=== PATIENT | female | born 1950 | race Caucasian/White ===

== ENCOUNTER 2021-07-12 09:36 | Observation (INO) | payer MEDICARE ==
[2021-07-12] MEDS ORDERED: Sodium Chloride 0.9% 500 ML 500 ML IV ONE ×4 (10:16→14:47)
[2021-07-12] MEDS ORDERED: Zofran 4 MG/2 ML VIAL IV ONE ×2 (10:17→13:24)
--- NOTE | 2021-07-12 10:22 | ERPHSYRPT ---
- History of Present Illness Time Seen by Provider: 07/12/21 10:07 Source: patient, family Exam Limitations: no limitations Patient Subjective Stated Complaint: Pt states "My kids think I am having an anxiety attach, I recently lost my and brother. I am nauseated and I get dizzy and I just do not feel well. I have a cough as well." Triage Nursing Assessment: Pt presented alert and oriented X 3, skin pwd Pt ambulates with a slow gait, able to speak in clear full sentences pt has depressed appearance, slow movements. Physician History: 71-year-old female with history of hypertension, hyperlipidemia, coronary artery disease status post stenting presented to the ER with chief complaint of dizziness, nausea/dry heaving with cough minimal productive of clear to yellow sputum for the last couple of days. Patient reports she felt dizzy and lightheaded with lying down and activity, feels spinning sensation with associated nausea and no vomiting. No abdominal pain or diarrhea reported. Also have minimal productive cough and he gets short of breath at times but no chest pain. No fever or chills reported. Feels weak fatigued and tired with some off balance at times. No focal numbness tingling or weakness. No difficulty speech or visual symptoms. Does have history of anxiety and lately having worsening of symptoms because of loss of and brother in the month time. Timing/Duration: day(s) (2), gradual onset, worse Severity: moderate Modifying Factors: Worsens With: movement Associated Symptoms: nausea, shortness of breath, cough, malaise, weakness, No abdominal pain, No chest pain Allergies/Adverse Reactions: No Known Drug Allergies Allergy (Verified 07/12/21 09:52) Home Medications: Aspirin EC 325 mg [Ecotrin 325 MG] 325 mg PO DAILY 07/12/21 [History] lisinopriL [Lisinopril] 5 mg PO DAILY 07/12/21 [History] Hx Tetanus, Diphtheria Vaccination/Date Given: No Hx Influenza Vaccination/Date Given: Yes Hx Pneumococcal Vaccination/Date Given: No Immunizations Up to Date: Yes Travel Risk - International Travel Have you traveled outside of the country in past 3 weeks: No - Coronavirus Screening Are you exhibiting any of the following symptoms?: No Close contact with a COVID-19 positive Pt in past 14-21 Days: No - Vaccine Status Have you recieved a Covid-19 vaccination: Yes It Technician: Moderna - Vaccination Dates Date of 2cond Vaccination (if applicable): 07/2020 - Review of Systems Constitutional: Fatigue, Weakness Eyes: No Symptoms Ears, Nose, & Throat: No Symptoms Respiratory: Cough, Dyspnea Cardiac: No Symptoms Abdominal/Gastrointestinal: Nausea Genitourinary Symptoms: No Symptoms Musculoskeletal: Myalgias Skin: No Symptoms Neurological: Dizziness, Gait Changes Psychological: Anxiety Endocrine: No Symptoms Hematologic/Lymphatic: No Symptoms Immunological/Allergic: No Symptoms - Past Medical History Pertinent Past Medical History: Yes Neurological History: No Pertinent History Cardiac History: Coronary Artery Disease, High Cholesterol, Hypertension Respiratory History: No Pertinent History Endocrine Medical History: No Pertinent History Musculoskeletal History: Fractures Other Medical History: FX RIGHT ANKLE - BOOTED X 8 WEEKS. ONE STENT PLACED IN HEART 2005. HYSTERECTOMY 22 YEARS AGO. - Past Surgical History Past Surgical History: Yes Other Surgical History: d & C. complete hysterectomy. appi - Social History Smoking Status: Never smoker Exposure to second hand smoke: Yes Drug Use: none Patient Lives Alone: Yes - Nursing Vital Signs Nursing Vital Signs: Initial Vital Signs Temperature 97.7 F 07/12/21 09:44 Pulse Rate 118 H 07/12/21 09:44 Respiratory Rate 26 H 07/12/21 09:44 Blood Pressure 187/98 07/12/21 09:44 O2 Sat by Pulse Oximetry 96 07/12/21 09:44 Pain Scale Pain Intensity 0 - Physical Exam General Appearance: no apparent distress, alert, anxiety Eye Exam: PERRL/EOMI, eyes nml inspection Ears, Nose, Throat Exam: normal ENT inspection, TMs normal, pharynx normal, moist mucous membranes Neck Exam: normal inspection, non-tender, supple, full range of motion Respiratory Exam: normal breath sounds, lungs clear Cardiovascular Exam: normal heart sounds, tachycardia Back Exam: normal inspection, normal range of motion Extremity Exam: normal inspection, normal range of motion Neurologic Exam: alert, oriented x 3, cooperative, 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, nml cerebellar function, sensation nml, No normal mood/affect, No motor deficits Skin Exam: normal color SpO2 Interpretation: normal SpO2: 96 O2 Delivery: Room Air - Course EKG Interpreted by Me: RATE (112), Sinus Tach, NORMAL AXIS, NORMAL INTERVALS, NORMAL QRS, Other (Nonspecific T wave changes) Ordered Tests: Active Orders 24 hr Category Date Time Status EKG-ER Only STAT Care 07/12/21 10:15 Active IV Insertion STAT Care 07/12/21 10:15 Active NPO (ED) STAT Care 07/12/21 10:15 Active CHEST 1 VIEW (PORTABLE) Stat Exams 07/12/21 10:15 Completed CHEST WITH CONTRAST [CT] Stat Exams 07/12/21 11:40 Taken HEAD WITHOUT CONTRAST [CT] Stat Exams 07/12/21 10:17 Taken CBC W DIFF Stat Lab 07/12/21 10:10 Completed CMP Stat Lab 07/12/21 10:10 Completed LIPASE Stat Lab 07/12/21 10:10 Completed Lactic Acid Stat Lab 07/12/21 10:15 Completed Lactic Acid Stat Lab 07/12/21 13:15 Completed MAGNESIUM Stat Lab 07/12/21 10:10 Completed NT PRO BNP Routine Lab 07/12/21 13:16 Completed NT PRO BNP Stat Lab 07/12/21 10:10 Completed TROPONIN Q3H Lab 07/12/21 10:15 Completed TROPONIN Q3H Lab 07/12/21 13:16 Completed TROPONIN Q3H Lab 07/12/21 16:15 Ordered TROPONIN Q3H Lab 07/12/21 19:15 Ordered TROPONIN Q3H Lab 07/12/21 22:15 Ordered Transfer Order Routine Transfer 07/12/21 Ordered Medication Summary Generic Name Dose Route Start Last Admin Trade Name Freq PRN Reason Stop Dose Admin Sodium Chloride 500 mls @ 500 mls/hr 07/12/21 14:34 07/12/21 14:48 Sodium Chloride 0.9% 500 Ml IV 07/12/21 15:33 500 mls/hr .Q1H ONE Administration Discontinued Medications Generic Name Dose Route Start Last Admin Trade Name Freq PRN Reason Stop Dose Admin Acetaminophen 975 mg 07/12/21 13:24 07/12/21 13:33 Acetaminophen 325 Mg Tablet PO 07/12/21 13:25 975 mg STAT STA Administration Acetaminophen Confirm 07/12/21 13:32 Acetaminophen 325 Mg Tablet Administered 07/12/21 13:33 Dose 975 mg .ROUTE .STK-MED ONE Sodium Chloride 500 mls @ 500 mls/hr 07/12/21 10:16 07/12/21 11:39 Sodium Chloride 0.9% 500 Ml IV 07/12/21 11:15 Infused .Q1H ONE Infusion Sodium Chloride Confirm 07/12/21 10:32 Sodium Chloride 0.9% 500 Ml Administered 07/12/21 10:33 Dose 500 mls @ ud IV .STK-MED ONE Sodium Chloride Confirm 07/12/21 14:47 Sodium Chloride 0.9% 500 Ml Administered 07/12/21 14:48 Dose 500 mls @ ud IV .STK-MED ONE Meclizine HCl 25 mg 07/12/21 14:34 07/12/21 14:48 Meclizine Hcl 25 Mg Tablet PO 07/12/21 14:35 25 mg STAT ONE Administration Meclizine HCl Confirm 07/12/21 14:46 Meclizine Hcl 25 Mg Tablet Administered 07/12/21 14:47 Dose 25 mg .ROUTE .STK-MED ONE Ondansetron HCl 4 mg 07/12/21 10:17 07/12/21 10:38 Ondansetron Hcl 4 Mg/2 Ml Vial IV 07/12/21 10:18 4 mg STAT ONE Administration Ondansetron HCl Confirm 07/12/21 10:31 Ondansetron Hcl 4 Mg/2 Ml Vial Administered 07/12/21 10:32 Dose 4 mg .ROUTE .STK-MED ONE Ondansetron HCl 4 mg 07/12/21 13:24 07/12/21 13:33 Ondansetron Hcl 4 Mg/2 Ml Vial IV 07/12/21 13:25 4 mg STAT ONE Administration Ondansetron HCl Confirm 07/12/21 13:32 Ondansetron Hcl 4 Mg/2 Ml Vial Administered 07/12/21 13:33 Dose 4 mg .ROUTE .STK-MED ONE Lab/Rad Data: Laboratory Result Diagrams 07/12/21 10:10 07/12/21 10:10 Laboratory Results 07/12/21 07/12/21 07/12/21 Range/Units 13:16 13:15 10:15 WBC (4.0-10.5) K/mm3 RBC (4.1-5.4) M/mm3 Hgb (12.0-16.0) gm/dl Hct (35-47) % MCV (78-100) fl MCH (26-32) pg MCHC (32-36) g/dl RDW (11.5-14.0) % Plt Count (150-450) K/mm3 MPV (7.5-11.0) fl Gran % (36.0-66.0) % Eos # (Auto) (0-0.5) Absolute Lymphs (auto) (1.0-4.6) Absolute Monos (auto) (0.0-1.3) Lymphocytes % (24.0-44.0) % Monocytes % (0.0-12.0) % Eosinophils % (0.00-5.0) % Basophils % (0.0-0.4) % Absolute Granulocytes (1.4-6.9) Basophils # (0-0.4) Sodium (137-145) mmol/L Potassium (3.5-5.1) mmol/L Chloride (98-107) mmol/L Carbon Dioxide (22-30) mmol/L Anion Gap (5-15) MEQ/L BUN (7-17) mg/dL Creatinine (0.52-1.04) mg/dL Estimated GFR ML/MIN Glucose (74-106) mg/dL Lactic Acid 2.5 H 2.3 H (0.4-2.0) Calcium (8.4-10.2) mg/dL Magnesium (1.6-2.3) mg/dL Total Bilirubin (0.2-1.3) mg/dL AST (14-36) U/L ALT (0-35) U/L Alkaline Phosphatase (38-126) U/L Troponin I < 0.012 (0.000-0.034) ng/mL NT-Pro-B Natriuret Pep 231 (0-900) pg/mL Serum Total Protein (6.3-8.2) g/dL Albumin (3.5-5.0) g/dL Lipase (23-300) U/L Urinalys Dipstick Clnc Urine Color (YELLOW) Urine Appearance (CLEAR) Urine pH (5-6) Ur Specific Ferguson (1.005-1.025) POC Urine Protein Conf (Negative) Urine Ketones (NEGATIVE) Urine Nitrite (NEGATIVE) Urine Bilirubin (NEGATIVE) Urine Urobilinogen (0-1) mg/dL Urine Leukocytes (NEGATIVE) Urine WBC (Auto) (0-5) /HPF Urine RBC (Auto) (0-2) /HPF U Epithel Cells (Auto) (FEW) /HPF Urine Bacteria (Auto) (NEGATIVE) /HPF Urine RBC (0-5) Jimbo/ul Urine Mucus (Auto) (NEGATIVE) /HPF Ur Culture Indicated? Urine Glucose (NEGATIVE) mg/dL 07/12/21 07/12/21 07/12/21 Range/Units 10:15 10:10 10:10 WBC 13.4 H (4.0-10.5) K/mm3 RBC 4.93 (4.1-5.4) M/mm3 Hgb 16.0 (12.0-16.0) gm/dl Hct 47.0 (35-47) % MCV 95.3 (78-100) fl MCH 32.5 H (26-32) pg MCHC 34.0 (32-36) g/dl RDW 13.1 (11.5-14.0) % Plt Count 258 (150-450) K/mm3 MPV 11.1 H (7.5-11.0) fl Gran % 88.4 H (36.0-66.0) % Eos # (Auto) 0.05 (0-0.5) Absolute Lymphs (auto) 0.76 L (1.0-4.6) Absolute Monos (auto) 0.69 (0.0-1.3) Lymphocytes % 5.7 L (24.0-44.0) % Monocytes % 5.2 (0.0-12.0) % Eosinophils % 0.4 (0.00-5.0) % Basophils % 0.3 (0.0-0.4) % Absolute Granulocytes 11.81 H (1.4-6.9) Basophils # 0.04 (0-0.4) Sodium 137 (137-145) mmol/L Potassium 4.4 (3.5-5.1) mmol/L Chloride 101 (98-107) mmol/L Carbon Dioxide 25 (22-30) mmol/L Anion Gap 15.4 H (5-15) MEQ/L BUN 14 (7-17) mg/dL Creatinine 0.62 (0.52-1.04) mg/dL Estimated GFR > 60.0 ML/MIN Glucose 145 H (74-106) mg/dL Lactic Acid (0.4-2.0) Calcium 9.7 (8.4-10.2) mg/dL Magnesium 1.7 (1.6-2.3) mg/dL Total Bilirubin 0.80 (0.2-1.3) mg/dL AST 23 (14-36) U/L ALT 17 (0-35) U/L Alkaline Phosphatase 108 (38-126) U/L Troponin I < 0.012 (0.000-0.034) ng/mL NT-Pro-B Natriuret Pep 190 (0-900) pg/mL Serum Total Protein 7.3 (6.3-8.2) g/dL Albumin 4.3 (3.5-5.0) g/dL Lipase 60 (23-300) U/L Urinalys Dipstick Clnc Urine Color (YELLOW) Urine Appearance (CLEAR) Urine pH (5-6) Ur Specific Ferguson (1.005-1.025) POC Urine Protein Conf (Negative) Urine Ketones (NEGATIVE) Urine Nitrite (NEGATIVE) Urine Bilirubin (NEGATIVE) Urine Urobilinogen (0-1) mg/dL Urine Leukocytes (NEGATIVE) Urine WBC (Auto) (0-5) /HPF Urine RBC (Auto) (0-2) /HPF U Epithel Cells (Auto) (FEW) /HPF Urine Bacteria (Auto) (NEGATIVE) /HPF Urine RBC (0-5) Jimbo/ul Urine Mucus (Auto) (NEGATIVE) /HPF Ur Culture Indicated? Urine Glucose (NEGATIVE) mg/dL 07/12/21 Range/Units 10:07 WBC (4.0-10.5) K/mm3 RBC (4.1-5.4) M/mm3 Hgb (12.0-16.0) gm/dl Hct (35-47) % MCV (78-100) fl MCH (26-32) pg MCHC (32-36) g/dl RDW (11.5-14.0) % Plt Count (150-450) K/mm3 MPV (7.5-11.0) fl Gran % (36.0-66.0) % Eos # (Auto) (0-0.5) Absolute Lymphs (auto) (1.0-4.6) Absolute Monos (auto) (0.0-1.3) Lymphocytes % (24.0-44.0) % Monocytes % (0.0-12.0) % Eosinophils % (0.00-5.0) % Basophils % (0.0-0.4) % Absolute Granulocytes (1.4-6.9) Basophils # (0-0.4) Sodium (137-145) mmol/L Potassium (3.5-5.1) mmol/L Chloride (98-107) mmol/L Carbon Dioxide (22-30) mmol/L Anion Gap (5-15) MEQ/L BUN (7-17) mg/dL Creatinine (0.52-1.04) mg/dL Estimated GFR ML/MIN Glucose (74-106) mg/dL Lactic Acid (0.4-2.0) Calcium (8.4-10.2) mg/dL Magnesium (1.6-2.3) mg/dL Total Bilirubin (0.2-1.3) mg/dL AST (14-36) U/L ALT (0-35) U/L Alkaline Phosphatase (38-126) U/L Troponin I (0.000-0.034) ng/mL NT-Pro-B Natriuret Pep (0-900) pg/mL Serum Total Protein (6.3-8.2) g/dL Albumin (3.5-5.0) g/dL Lipase (23-300) U/L Urinalys Dipstick Clnc MAIN LAB Urine Color YELLOW (YELLOW) Urine Appearance CLEAR (CLEAR) Urine pH 8.5 (5-6) Ur Specific Ferguson 1.015 (1.005-1.025) POC Urine Protein Conf NEGATIVE (Negative) Urine Ketones NEGATIVE (NEGATIVE) Urine Nitrite NEGATIVE (NEGATIVE) Urine Bilirubin NEGATIVE (NEGATIVE) Urine Urobilinogen 1 (0-1) mg/dL Urine Leukocytes NEGATIVE (NEGATIVE) Urine WBC (Auto) NONE (0-5) /HPF Urine RBC (Auto) 3-5 (0-2) /HPF U Epithel Cells (Auto) RARE (FEW) /HPF Urine Bacteria (Auto) RARE (NEGATIVE) /HPF Urine RBC TRACE-INTACT (0-5) Jimbo/ul Urine Mucus (Auto) SLIGHT (NEGATIVE) /HPF Ur Culture Indicated? NO Urine Glucose NEGATIVE (NEGATIVE) mg/dL - Progress Progress: improved, re-examined Progress Note: 07/12/21 15:02 71-year-old is evaluated for dizziness, nausea, was tachycardic on presentation with heart rate in 110s, given fluid bolus, meclizine along with Zofran, on reevaluation feeling better. EKG showed sinus tach without any acute ST elevations. Negative troponins x2. The white count of 13 with a lactate of 2.3. CT head is negative for any acute findings. Patient has no focal deficit. Patient does get dizzy with sitting up and was difficult to do orthostatics. Obtained CTA chest as well which is negative for any acute findings. With her symptoms of getting off balance, dizzy, concern for posterior fossa stroke. This has been going on for the last 4 to 5 days per patient and she is not a candidate for any emergent treatment, discussed with Dr. Damon, patient is admitted and will plan on doing MRI tomorrow. Plan discussed with patient and family who understand and agree with it. Discussed with : Arlet Will see patient in: hospital (observation) Counseled pt/family regarding: lab results, diagnosis, rad results - Departure Departure Disposition: Observation Clinical Impression: Dizziness, Generalized weakness Condition: Stable Critical Care Time: No Referrals: FAVIO HUTSON, [Primary Care Provider] - Follow up/PCP as directed
[2021-07-12 10:23] LABS: Absolute Neutrophil Ct (ANC) 11.81 (1.4-6.9); Basophil (Absolute #) 0.04 (0-0.4); Eosinophil % 0.4 % (0.00-5.0); Eosinophil (Absolute #) 0.05 (0-0.5); Lymphocyte (Absolute #) 0.76 (1.0-4.6); Lymphocytes % 5.7 % (24.0-44.0); Mean Cell Volume 95.3 fl (78-100); Mean Corpuscular Hemoglobin 32.5 pg (26-32); Mean Platelet Volume 11.1 fl (7.5-11.0); Monocyte (Absolute #) 0.69 (0.0-1.3); Monocytes % 5.2 % (0.0-12.0); Neutrophil % 88.4 % (36.0-66.0); Platelet Count 258 K/mm3 (150-450); Red Blood Count 4.93 M/mm3 (4.1-5.4); Red Cell Distribution Width 13.1 % (11.5-14.0); White Blood Count 13.4 K/mm3 (4.0-10.5)
[2021-07-12] MEDS ORDERED: Zofran 4 MG/2 ML VIAL ONE ×2 (10:31→13:32)
[2021-07-12 10:37] LABS: Bacteria RARE /HPF (NEGATIVE); Epithelial Cells RARE /HPF (FEW); Mucus SLIGHT /HPF (NEGATIVE)
[2021-07-12 10:38] LABS: Appearance CLEAR (CLEAR); Bilirubin NEGATIVE (NEGATIVE); Glucose NEGATIVE (NEGATIVE); Ketones NEGATIVE (NEGATIVE); Nitrite NEGATIVE (NEGATIVE); Ph 8.5 (5-6); Protein,Urine Dip NEGATIVE (Negative); RBC TRACE-INTACT Ery/ul (0-5); Specific Gravity 1.015 (1.005-1.025); Urobilinogen 1 mg/dL (0-1)
[2021-07-12 10:39] LABS: Urine Cultured Indicated? NO
[2021-07-12 10:41] LABS: Dipstick done @ ? MAIN LAB
[2021-07-12 10:50] LABS: ALBUMIN 4.3 g/dL (3.5-5.0); ALKALINE PHOSPHATASE 108 U/L (38-126); ANION GAP 15.4 MEQ/L (5-15); BLOOD UREA NITROGEN 14 mg/dL (7-17); CHLORIDE 101 mmol/L (98-107); Calcium 9.7 mg/dL (8.4-10.2); Carbon Dioxide 25 mmol/L (22-30); Creatinine 1 0.62 mg/dL (0.52-1.04); EST GLOMERULAR FILTRATION RATE > 60.0 ML/MIN; Glucose 145 mg/dL (74-106); LIPASE 60 U/L (23-300); MAGNESIUM 1.7 mg/dL (1.6-2.3); NT PRO BNP 190 pg/mL (0-900); Potassium 4.4 mmol/L (3.5-5.1); SGOT/AST 23 U/L (14-36); SGPT/ALT 17 U/L (0-35); SODIUM 137 mmol/L (137-145); Total Protein 7.3 g/dL (6.3-8.2)
--- NOTE | 2021-07-12 12:49 | XRAY ---
Indication: Dizziness, weakness, and dry heaving. Comparison: None Portable apical lordotic chest demonstrates minimal right midlung fibrosis/scarring. Remaining heart and lungs unremarkable. Bony thorax intact with mild osteopenia and degenerative changes.
[2021-07-12] MEDS ORDERED: TYLENOL 325 MG PO STA (13:24)
[2021-07-12] MEDS ORDERED: TYLENOL 325 MG ONE (13:32)
[2021-07-12 14:02] LABS: NT PRO BNP 231 pg/mL (0-900); TROPONIN < 0.012 ng/mL (0.000-0.034)
[2021-07-12] MEDS ORDERED: ANTIVERT 25 MG ONE (14:46)
[2021-07-12] MEDS: ANTIVERT 25 MG PO ONE (14:48)
[2021-07-12 16:09] LABS: INFLUENZA A NEGATIVE (NEGATIVE); INFLUENZA B NEGATIVE (NEGATIVE); RESPIRATORY SYNCTIAL VIRUS NEGATIVE (Negative); SARS-CoV-2 Xpert Express NEGATIVE (NEGATIVE)
[2021-07-12] MEDS ORDERED: Zofran 4 MG/2 ML VIAL IV PRN (16:51)
[2021-07-12] MEDS ORDERED: DUONEB 0.5-3 MG/3 ml Neb IH PRN (16:51)
[2021-07-12] MEDS ORDERED: TYLENOL 325 MG PO PRN (16:51)
[2021-07-12] MEDS ORDERED: Robitussin 100 MG/5 ML ONE (20:59)
[2021-07-12] MEDS: Robitussin-Dm Syrup PO SCH (21:07)
--- NOTE | 2021-07-12 22:19 | XRAY ---
Indication: Dizziness, weakness, and dry heaving. Multiple contiguous axial images obtained through the head without contrast. Comparison: None Age-appropriate global atrophy. No acute intracranial hemorrhage, abnormal extra-axial fluid collection, or mass effect. Fourth ventricle is midline without hydrocephalus. Incidental empty sella. [place]-white matter differentiation preserved. Bony calvarium intact. Near-complete opacification of the left maxillary sinus. Remaining paranasal sinuses and mastoid air cells are clear. Impression: Left maxillary sinus disease. Remaining CT head without contrast exam is negative. Comment: Preliminary interpretation made by [facility]. No critical discrepancy.
--- NOTE | 2021-07-12 22:21 | XRAY ---
Indication: Short of breath and dizziness. Pulmonary embolus. Multiple contiguous axial images obtained through the chest using 100 cc Isovue 370 contrast and PE protocol. Comparison: None There is good opacification of the pulmonary arteries to include the lobar and segmental branches. No pulmonary embolus. Heart not enlarged. Aorta is normal in course and caliber. No pathologic mediastinal/hilar lymphadenopathy. Small hiatal hernia. Lungs demonstrates minimal bilateral mid to lower lung subsegmental atelectasis/scarring. No suspicious pulmonary mass, infiltrate, or effusion. Bony thorax intact with mild degenerative changes throughout the spine. Limited upper abdomen demonstrates fatty liver and 2 left renal calculi, largest 1.2 cm in the upper calyx. Impression: 1. Negative pulmonary embolus. 2. Scattered atelectasis/scarring and small hiatal hernia. 3. No acute cardiopulmonary abnormalities. 3. Incidental fatty liver and left renal calculi. Comment: Preliminary interpretation made by [facility]. No critical discrepancy.
[2021-07-13] MEDS: Robitussin-Dm Syrup PO SCH ×3 (00:19→08:21)
[2021-07-13 05:08] LABS: Absolute Neutrophil Ct (ANC) 4.74 (1.4-6.9); Basophil (Absolute #) 0.04 (0-0.4); Eosinophil % 2.6 % (0.00-5.0); Eosinophil (Absolute #) 0.17 (0-0.5); Hematocrit 38.4 % (35-47); Hemoglobin 12.9 gm/dl (12.0-16.0); Lymphocyte (Absolute #) 0.66 (1.0-4.6); Lymphocytes % 10.2 % (24.0-44.0); Mean Cell Volume 96.5 fl (78-100); Mean Corpuscular Hemoglobin 32.4 pg (26-32); Mean Corpuscular Hgb Concent. 33.6 g/dl (32-36); Mean Platelet Volume 11.1 fl (7.5-11.0); Monocyte (Absolute #) 0.86 (0.0-1.3); Monocytes % 13.3 % (0.0-12.0); Neutrophil % 73.3 % (36.0-66.0); Platelet Count 211 K/mm3 (150-450); Red Blood Count 3.98 M/mm3 (4.1-5.4); Red Cell Distribution Width 13.2 % (11.5-14.0); White Blood Count 6.5 K/mm3 (4.0-10.5)
[2021-07-13 05:12] LABS: ALBUMIN 3.5 g/dL (3.5-5.0); ALKALINE PHOSPHATASE 67 U/L (38-126); ANION GAP 12.2 MEQ/L (5-15); BLOOD UREA NITROGEN 14 mg/dL (7-17); CHLORIDE 102 mmol/L (98-107); Calcium 8.7 mg/dL (8.4-10.2); Carbon Dioxide 24 mmol/L (22-30); Creatinine 1 0.65 mg/dL (0.52-1.04); EST GLOMERULAR FILTRATION RATE > 60.0 ML/MIN; Glucose 119 mg/dL (74-106); Potassium 3.7 mmol/L (3.5-5.1); SGOT/AST 21 U/L (14-36); SGPT/ALT 14 U/L (0-35); SODIUM 135 mmol/L (137-145); Total Protein 6.3 g/dL (6.3-8.2)
[2021-07-13 08:15] VITALS: BP 115/58; PULSE 92; O2SAT 92
[2021-07-13] MEDS ORDERED: NON-FORMULARY ITEM (Vit A/Vit C/Vit E/Zinc/Copper [Preservision Areds Softgel] 1 EACH Caps PO SCH (10:00)
[2021-07-13] MEDS ORDERED: ANTIVERT 25 MG PO ONE (10:00)
[2021-07-13] MEDS ORDERED: Zestril 5 MG PO SCH (10:00)
[2021-07-13] MEDS ORDERED: Ocuvite Tablet PO SCH (10:00)
[2021-07-13] MEDS ORDERED: NON-FORMULARY ITEM (Calcium Carbonate [Calcium] 500 MG Tablet) PO SCH (10:00)
[2021-07-13] MEDS ORDERED: Ecotrin 325 MG PO SCH (10:00)
[2021-07-13] MEDS ORDERED: Calcium 500MG W/Vit D Tablet PO SCH (10:00)
[2021-07-13] MEDS ORDERED: PROTONIX 40 MG IV IV SCH (10:00)
[2021-07-13] MEDS: ANTIVERT 25 MG PO ONE (10:17)
--- NOTE | 2021-07-13 10:34 | PCM.SSS ---
History of Present Illness - Chief Complaint Chief Complaint: Dizziness History of Present Illness: is a 71 year old female with Hx CAD with stent 2006,HTN,GERD.Patient presented to ER c/o dizziness "feel like I am Spinning",episodic. C/O "chest cold "and sinus drainage past few days. Stress due to about 5 months ago. - Review of Systems Constitutional: Fatigue Eyes: No Symptoms Ears, Nose, & Throat: Sinus Drainage, Other (dizziness-see HPI) Respiratory: Cough, Short Of Breath Cardiac: No Symptoms, Other Abdominal/Gastrointestinal: No Symptoms, Other (GERD controlled on meds) Genitourinary Symptoms: No Symptoms Musculoskeletal: Other (no acute symptoms) Skin: No Symptoms Neurological: Dizziness, Other (no focal weaknees or headache) Psychological: Anxiety (grief due to passing ) Endocrine: No Symptoms Immunological/Allergic: Other Medications & Allergies Home Medications: Home Medication List Aspirin EC 325 mg [Ecotrin 325 MG] 325 mg PO DAILY 07/12/21 [History Confirmed 07/12/21] Calcium Carbonate [Calcium] 500 mg PO DAILY 07/12/21 [History Confirmed 07/12/21] Vit A/Vit C/Vit E/Zinc/Copper [Preservision Areds Softgel] 2 cap PO DAILY 07/12/21 [History Confirmed 07/12/21] lisinopriL [Lisinopril] 5 mg PO DAILY 07/12/21 [History Confirmed 07/12/21] Azithromycin [Azithromycin 250 mg Pack] 250 mg PO UD #1 packet 07/13/21 [Rx] Lisinopril 5 mg [Zestril 5 MG] 5 mg PO DAILY 30 Days #30 tablet 07/13/21 [Rx] Allergies/Adverse Reactions: Allergies Allergy/AdvReac Type Severity Reaction Status Date / Time No Known Drug Allergies Allergy Verified 07/12/21 09:52 - Past Medical History Past Medical History: Yes Neurological History: No Pertinent History ENT History: No Pertinent History Cardiac History: Coronary Artery Disease, High Cholesterol, Hypertension Respiratory History: No Pertinent History Endocrine Medical History: No Pertinent History Musculoskelatal History: Fractures GI Medical History: No Pertinent History History: No Pertinent History Pyscho-Social History: No Pertinent History Reproductive Disorders: No Pertinent History Comment: FX RIGHT ANKLE - BOOTED X 8 WEEKS. ONE STENT PLACED IN HEART 2005. HYSTERECTOMY 22 YEARS AGO. - Female History Are you now?: No - Past Surgical History Past Surgical History: Yes Neuro Surgical History: No Pertinent History Cardiac History: Cardiac Stent Respiratory Surgery: No Pertinent History Genitourinary Surgical Hx: No Pertinent History Musculskeletal Surgical Hx: No Pertinent History Female Surgical History: Hysterectomy Other Surgical History: d & C. complete hysterectomy. appi - Social History Smoking Status: Never smoker Exposure to second hand smoke: Yes Alcohol: None Drug Use: none - Physical Exam Vital Signs: Vital Signs - 24 hr Temp Pulse Resp BP Pulse Ox 07/13/21 08:14 92 L 07/13/21 08:00 98.6 F 92 H 20 115/58 93 L 07/13/21 03:39 98.3 F 110 H 20 139/88 94 L 07/12/21 23:53 98.6 F 92 H 16 106/55 95 07/12/21 19:55 98.6 F 109 H 16 115/55 93 L 07/12/21 19:29 93 L 07/12/21 17:18 92 L 07/12/21 17:11 97.8 F 100 H 20 109/71 92 L 07/12/21 16:30 97.8 F 100 H 20 109/71 98 07/12/21 15:26 105 H 20 144/80 93 L 07/12/21 15:09 96 07/12/21 14:17 97.7 F 111 H 20 154/84 92 L 07/12/21 13:26 97.7 F 109 H 20 173/87 98 07/12/21 12:14 97.7 F 115 H 20 140/95 92 L 07/12/21 11:34 112 H 22 140/94 93 L 07/12/21 10:42 97.7 F 104 H 20 152/98 98 General Appearance: no apparent distress Neurologic Exam: alert, oriented x 3, cooperative, 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, normal mood/affect Eye Exam: eyes nml inspection Ears, Nose, Throat Exam: TM abnormal (R) (opacified) Neck Exam: normal inspection Respiratory Exam: normal breath sounds Cardiovascular Exam: regular rate/rhythm, normal heart sounds Gastrointestinal/Abdomen Exam: soft, normal bowel sounds (nontender) Pelvic Exam: not done Rectal Exam: not done Back Exam: other (muscle tension paracervical and trap mm) Extremity Exam: normal inspection Results - Labs Lab/Micro Results: Lab Results-Last 24 Hours 07/12/21 07/12/21 07/12/21 Range/Units 10:07 10:10 10:15 WBC (4.0-10.5) K/mm3 RBC (4.1-5.4) M/mm3 Hgb (12.0-16.0) gm/dl Hct (35-47) % MCV (78-100) fl MCH (26-32) pg MCHC (32-36) g/dl RDW (11.5-14.0) % Plt Count (150-450) K/mm3 MPV (7.5-11.0) fl Gran % (36.0-66.0) % Eos # (Auto) (0-0.5) Absolute Lymphs (auto) (1.0-4.6) Absolute Monos (auto) (0.0-1.3) Lymphocytes % (24.0-44.0) % Monocytes % (0.0-12.0) % Eosinophils % (0.00-5.0) % Basophils % (0.0-0.4) % Absolute Granulocytes (1.4-6.9) Basophils # (0-0.4) Sodium 137 (137-145) mmol/L Potassium 4.4 (3.5-5.1) mmol/L Chloride 101 (98-107) mmol/L Carbon Dioxide 25 (22-30) mmol/L Anion Gap 15.4 H (5-15) MEQ/L BUN 14 (7-17) mg/dL Creatinine 0.62 (0.52-1.04) mg/dL Estimated GFR > 60.0 ML/MIN Glucose 145 H (74-106) mg/dL Lactic Acid (0.4-2.0) Calcium 9.7 (8.4-10.2) mg/dL Magnesium 1.7 (1.6-2.3) mg/dL Total Bilirubin 0.80 (0.2-1.3) mg/dL AST 23 (14-36) U/L ALT 17 (0-35) U/L Alkaline Phosphatase 108 (38-126) U/L Troponin I < 0.012 (0.000-0.034) ng/mL NT-Pro-B Natriuret Pep 190 (0-900) pg/mL Serum Total Protein 7.3 (6.3-8.2) g/dL Albumin 4.3 (3.5-5.0) g/dL Lipase 60 (23-300) U/L Urinalys Dipstick Clnc MAIN LAB Urine Color YELLOW (YELLOW) Urine Appearance CLEAR (CLEAR) Urine pH 8.5 (5-6) Ur Specific [place] 1.015 (1.005-1.025) POC Urine Protein Conf NEGATIVE (Negative) Urine Ketones NEGATIVE (NEGATIVE) Urine Nitrite NEGATIVE (NEGATIVE) Urine Bilirubin NEGATIVE (NEGATIVE) Urine Urobilinogen 1 (0-1) mg/dL Urine Leukocytes NEGATIVE (NEGATIVE) Urine WBC (Auto) NONE (0-5) /HPF Urine RBC (Auto) 3-5 (0-2) /HPF U Epithel Cells (Auto) RARE (FEW) /HPF Urine Bacteria (Auto) RARE (NEGATIVE) /HPF Urine RBC TRACE-INTACT (0-5) Jimbo/ul Urine Mucus (Auto) SLIGHT (NEGATIVE) /HPF Ur Culture Indicated? NO Urine Glucose NEGATIVE (NEGATIVE) mg/dL Influenza Type A Ag (NEGATIVE) Influenza Type B Ag (NEGATIVE) RSV (PCR) (Negative) SARS-CoV-2 (PCR) (NEGATIVE) 07/12/21 07/12/21 07/12/21 Range/Units 10:15 13:15 13:16 WBC (4.0-10.5) K/mm3 RBC (4.1-5.4) M/mm3 Hgb (12.0-16.0) gm/dl Hct (35-47) % MCV (78-100) fl MCH (26-32) pg MCHC (32-36) g/dl RDW (11.5-14.0) % Plt Count (150-450) K/mm3 MPV (7.5-11.0) fl Gran % (36.0-66.0) % Eos # (Auto) (0-0.5) Absolute Lymphs (auto) (1.0-4.6) Absolute Monos (auto) (0.0-1.3) Lymphocytes % (24.0-44.0) % Monocytes % (0.0-12.0) % Eosinophils % (0.00-5.0) % Basophils % (0.0-0.4) % Absolute Granulocytes (1.4-6.9) Basophils # (0-0.4) Sodium (137-145) mmol/L Potassium (3.5-5.1) mmol/L Chloride (98-107) mmol/L Carbon Dioxide (22-30) mmol/L Anion Gap (5-15) MEQ/L BUN (7-17) mg/dL Creatinine (0.52-1.04) mg/dL Estimated GFR ML/MIN Glucose (74-106) mg/dL Lactic Acid 2.3 H 2.5 H (0.4-2.0) Calcium (8.4-10.2) mg/dL Magnesium (1.6-2.3) mg/dL Total Bilirubin (0.2-1.3) mg/dL AST (14-36) U/L ALT (0-35) U/L Alkaline Phosphatase (38-126) U/L Troponin I < 0.012 (0.000-0.034) ng/mL NT-Pro-B Natriuret Pep 231 (0-900) pg/mL Serum Total Protein (6.3-8.2) g/dL Albumin (3.5-5.0) g/dL Lipase (23-300) U/L Urinalys Dipstick Clnc Urine Color (YELLOW) Urine Appearance (CLEAR) Urine pH (5-6) Ur Specific [place] (1.005-1.025) POC Urine Protein Conf (Negative) Urine Ketones (NEGATIVE) Urine Nitrite (NEGATIVE) Urine Bilirubin (NEGATIVE) Urine Urobilinogen (0-1) mg/dL Urine Leukocytes (NEGATIVE) Urine WBC (Auto) (0-5) /HPF Urine RBC (Auto) (0-2) /HPF U Epithel Cells (Auto) (FEW) /HPF Urine Bacteria (Auto) (NEGATIVE) /HPF Urine RBC (0-5) Jimbo/ul Urine Mucus (Auto) (NEGATIVE) /HPF Ur Culture Indicated? Urine Glucose (NEGATIVE) mg/dL Influenza Type A Ag (NEGATIVE) Influenza Type B Ag (NEGATIVE) RSV (PCR) (Negative) SARS-CoV-2 (PCR) (NEGATIVE) 07/12/21 07/12/21 07/12/21 Range/Units 15:09 15:45 15:50 WBC (4.0-10.5) K/mm3 RBC (4.1-5.4) M/mm3 Hgb (12.0-16.0) gm/dl Hct (35-47) % MCV (78-100) fl MCH (26-32) pg MCHC (32-36) g/dl RDW (11.5-14.0) % Plt Count (150-450) K/mm3 MPV (7.5-11.0) fl Gran % (36.0-66.0) % Eos # (Auto) (0-0.5) Absolute Lymphs (auto) (1.0-4.6) Absolute Monos (auto) (0.0-1.3) Lymphocytes % (24.0-44.0) % Monocytes % (0.0-12.0) % Eosinophils % (0.00-5.0) % Basophils % (0.0-0.4) % Absolute Granulocytes (1.4-6.9) Basophils # (0-0.4) Sodium (137-145) mmol/L Potassium (3.5-5.1) mmol/L Chloride (98-107) mmol/L Carbon Dioxide (22-30) mmol/L Anion Gap (5-15) MEQ/L BUN (7-17) mg/dL Creatinine (0.52-1.04) mg/dL Estimated GFR ML/MIN Glucose (74-106) mg/dL Lactic Acid 1.3 (0.4-2.0) Calcium (8.4-10.2) mg/dL Magnesium (1.6-2.3) mg/dL Total Bilirubin (0.2-1.3) mg/dL AST (14-36) U/L ALT (0-35) U/L Alkaline Phosphatase (38-126) U/L Troponin I < 0.012 (0.000-0.034) ng/mL NT-Pro-B Natriuret Pep (0-900) pg/mL Serum Total Protein (6.3-8.2) g/dL Albumin (3.5-5.0) g/dL Lipase (23-300) U/L Urinalys Dipstick Clnc Urine Color (YELLOW) Urine Appearance (CLEAR) Urine pH (5-6) Ur Specific [place] (1.005-1.025) POC Urine Protein Conf (Negative) Urine Ketones (NEGATIVE) Urine Nitrite (NEGATIVE) Urine Bilirubin (NEGATIVE) Urine Urobilinogen (0-1) mg/dL Urine Leukocytes (NEGATIVE) Urine WBC (Auto) (0-5) /HPF Urine RBC (Auto) (0-2) /HPF U Epithel Cells (Auto) (FEW) /HPF Urine Bacteria (Auto) (NEGATIVE) /HPF Urine RBC (0-5) Jimbo/ul Urine Mucus (Auto) (NEGATIVE) /HPF Ur Culture Indicated? Urine Glucose (NEGATIVE) mg/dL Influenza Type A Ag NEGATIVE (NEGATIVE) Influenza Type B Ag NEGATIVE (NEGATIVE) RSV (PCR) NEGATIVE (Negative) SARS-CoV-2 (PCR) NEGATIVE (NEGATIVE) 07/12/21 07/12/21 07/13/21 Range/Units 20:08 23:08 04:36 WBC 6.5 (4.0-10.5) K/mm3 RBC 3.98 L (4.1-5.4) M/mm3 Hgb 12.9 (12.0-16.0) gm/dl Hct 38.4 (35-47) % MCV 96.5 (78-100) fl MCH 32.4 H (26-32) pg MCHC 33.6 (32-36) g/dl RDW 13.2 (11.5-14.0) % Plt Count 211 (150-450) K/mm3 MPV 11.1 H (7.5-11.0) fl Gran % 73.3 H (36.0-66.0) % Eos # (Auto) 0.17 (0-0.5) Absolute Lymphs (auto) 0.66 L (1.0-4.6) Absolute Monos (auto) 0.86 (0.0-1.3) Lymphocytes % 10.2 L (24.0-44.0) % Monocytes % 13.3 H (0.0-12.0) % Eosinophils % 2.6 (0.00-5.0) % Basophils % 0.6 (0.0-0.4) % Absolute Granulocytes 4.74 (1.4-6.9) Basophils # 0.04 (0-0.4) Sodium (137-145) mmol/L Potassium (3.5-5.1) mmol/L Chloride (98-107) mmol/L Carbon Dioxide (22-30) mmol/L Anion Gap (5-15) MEQ/L BUN (7-17) mg/dL Creatinine (0.52-1.04) mg/dL Estimated GFR ML/MIN Glucose (74-106) mg/dL Lactic Acid (0.4-2.0) Calcium (8.4-10.2) mg/dL Magnesium (1.6-2.3) mg/dL Total Bilirubin (0.2-1.3) mg/dL AST (14-36) U/L ALT (0-35) U/L Alkaline Phosphatase (38-126) U/L Troponin I < 0.012 < 0.012 (0.000-0.034) ng/mL NT-Pro-B Natriuret Pep (0-900) pg/mL Serum Total Protein (6.3-8.2) g/dL Albumin (3.5-5.0) g/dL Lipase (23-300) U/L Urinalys Dipstick Clnc Urine Color (YELLOW) Urine Appearance (CLEAR) Urine pH (5-6) Ur Specific [place] (1.005-1.025) POC Urine Protein Conf (Negative) Urine Ketones (NEGATIVE) Urine Nitrite (NEGATIVE) Urine Bilirubin (NEGATIVE) Urine Urobilinogen (0-1) mg/dL Urine Leukocytes (NEGATIVE) Urine WBC (Auto) (0-5) /HPF Urine RBC (Auto) (0-2) /HPF U Epithel Cells (Auto) (FEW) /HPF Urine Bacteria (Auto) (NEGATIVE) /HPF Urine RBC (0-5) Jimbo/ul Urine Mucus (Auto) (NEGATIVE) /HPF Ur Culture Indicated? Urine Glucose (NEGATIVE) mg/dL Influenza Type A Ag (NEGATIVE) Influenza Type B Ag (NEGATIVE) RSV (PCR) (Negative) SARS-CoV-2 (PCR) (NEGATIVE) 07/13/21 Range/Units 04:36 WBC (4.0-10.5) K/mm3 RBC (4.1-5.4) M/mm3 Hgb (12.0-16.0) gm/dl Hct (35-47) % MCV (78-100) fl MCH (26-32) pg MCHC (32-36) g/dl RDW (11.5-14.0) % Plt Count (150-450) K/mm3 MPV (7.5-11.0) fl Gran % (36.0-66.0) % Eos # (Auto) (0-0.5) Absolute Lymphs (auto) (1.0-4.6) Absolute Monos (auto) (0.0-1.3) Lymphocytes % (24.0-44.0) % Monocytes % (0.0-12.0) % Eosinophils % (0.00-5.0) % Basophils % (0.0-0.4) % Absolute Granulocytes (1.4-6.9) Basophils # (0-0.4) Sodium 135 L (137-145) mmol/L Potassium 3.7 (3.5-5.1) mmol/L Chloride 102 (98-107) mmol/L Carbon Dioxide 24 (22-30) mmol/L Anion Gap 12.2 (5-15) MEQ/L BUN 14 (7-17) mg/dL Creatinine 0.65 (0.52-1.04) mg/dL Estimated GFR > 60.0 ML/MIN Glucose 119 H (74-106) mg/dL Lactic Acid (0.4-2.0) Calcium 8.7 (8.4-10.2) mg/dL Magnesium (1.6-2.3) mg/dL Total Bilirubin 0.50 (0.2-1.3) mg/dL AST 21 (14-36) U/L ALT 14 (0-35) U/L Alkaline Phosphatase 67 (38-126) U/L Troponin I (0.000-0.034) ng/mL NT-Pro-B Natriuret Pep (0-900) pg/mL Serum Total Protein 6.3 (6.3-8.2) g/dL Albumin 3.5 (3.5-5.0) g/dL Lipase (23-300) U/L Urinalys Dipstick Clnc Urine Color (YELLOW) Urine Appearance (CLEAR) Urine pH (5-6) Ur Specific [place] (1.005-1.025) POC Urine Protein Conf (Negative) Urine Ketones (NEGATIVE) Urine Nitrite (NEGATIVE) Urine Bilirubin (NEGATIVE) Urine Urobilinogen (0-1) mg/dL Urine Leukocytes (NEGATIVE) Urine WBC (Auto) (0-5) /HPF Urine RBC (Auto) (0-2) /HPF U Epithel Cells (Auto) (FEW) /HPF Urine Bacteria (Auto) (NEGATIVE) /HPF Urine RBC (0-5) Jimbo/ul Urine Mucus (Auto) (NEGATIVE) /HPF Ur Culture Indicated? Urine Glucose (NEGATIVE) mg/dL Influenza Type A Ag (NEGATIVE) Influenza Type B Ag (NEGATIVE) RSV (PCR) (Negative) SARS-CoV-2 (PCR) (NEGATIVE) - Radiology Impressions Radiology Exams & Impressions: Radiology Procedures Category Date Time Status CHEST 1 VIEW (PORTABLE) Stat Exams 07/12/21 10:15 Completed CHEST WITH CONTRAST [CT] Stat Exams 07/12/21 11:40 Completed HEAD WITHOUT CONTRAST [CT] Stat Exams 07/12/21 10:17 Completed - Other Procedures and Tests Respiratory Therapy 07/12/21 16:51 Oxygen Nasal Cannula 2 lpm Assessment/Plan (1) Vertigo Current Visit: Yes Status: Acute Assessment & Plan: improved since admission,continue Meclizine Code(s): R42 - DIZZINESS AND GIDDINESS (2) Acute serous otitis media of right ear without rupture Current Visit: Yes Status: Acute Code(s): H65.01 - ACUTE SEROUS OTITIS MEDIA, RIGHT EAR (3) URI (upper respiratory infection) Current Visit: Yes Status: Acute Assessment & Plan: Zpk Rx ,patient feels mucus settling in upper chest Code(s): J06.9 - ACUTE UPPER RESPIRATORY INFECTION, UNSPECIFIED (4) HTN (hypertension) Current Visit: Yes Status: Chronic Assessment & Plan: continue Lisinopril 5mg Code(s): I10 - ESSENTIAL (PRIMARY) HYPERTENSION (5) CAD (coronary artery disease) Current Visit: Yes Status: Chronic Assessment & Plan: Dr Virgil rodríguez,Hx Stent 2005. Code(s): I25.10 - ATHSCL HEART DISEASE OF [place] CORONARY ARTERY W/O ANG [facility] Hospital Summary - Vitals & Intake/Output Vital Signs: Vital Signs Temperature 98.6 F 07/13/21 08:00 Pulse Rate 92 H 07/13/21 08:00 Respiratory Rate 20 07/13/21 08:00 Blood Pressure 115/58 07/13/21 08:00 O2 Sat by Pulse Oximetry 92 L 07/13/21 08:14 Intake & Output: Intake & Output 04/0807/11/21 07/12/21 07/13/21 11:59 11:59 11:59 11:59 Intake Total 870 Output Total 650 Balance 220 Weight 101 kg 100.5 kg - Lab Result Diagrams: 07/13/21 04:36 07/13/21 04:36 Lab Results-Last 24 Hrs: Lab Results-Last 24 Hours 07/12/21 07/12/21 07/12/21 Range/Units 10:07 10:10 10:15 WBC (4.0-10.5) K/mm3 RBC (4.1-5.4) M/mm3 Hgb (12.0-16.0) gm/dl Hct (35-47) % MCV (78-100) fl MCH (26-32) pg MCHC (32-36) g/dl RDW (11.5-14.0) % Plt Count (150-450) K/mm3 MPV (7.5-11.0) fl Gran % (36.0-66.0) % Eos # (Auto) (0-0.5) Absolute Lymphs (auto) (1.0-4.6) Absolute Monos (auto) (0.0-1.3) Lymphocytes % (24.0-44.0) % Monocytes % (0.0-12.0) % Eosinophils % (0.00-5.0) % Basophils % (0.0-0.4) % Absolute Granulocytes (1.4-6.9) Basophils # (0-0.4) Sodium 137 (137-145) mmol/L Potassium 4.4 (3.5-5.1) mmol/L Chloride 101 (98-107) mmol/L Carbon Dioxide 25 (22-30) mmol/L Anion Gap 15.4 H (5-15) MEQ/L BUN 14 (7-17) mg/dL Creatinine 0.62 (0.52-1.04) mg/dL Estimated GFR > 60.0 ML/MIN Glucose 145 H (74-106) mg/dL Lactic Acid (0.4-2.0) Calcium 9.7 (8.4-10.2) mg/dL Magnesium 1.7 (1.6-2.3) mg/dL Total Bilirubin 0.80 (0.2-1.3) mg/dL AST 23 (14-36) U/L ALT 17 (0-35) U/L Alkaline Phosphatase 108 (38-126) U/L Troponin I < 0.012 (0.000-0.034) ng/mL NT-Pro-B Natriuret Pep 190 (0-900) pg/mL Serum Total Protein 7.3 (6.3-8.2) g/dL Albumin 4.3 (3.5-5.0) g/dL Lipase 60 (23-300) U/L Urinalys Dipstick Clnc MAIN LAB Urine Color YELLOW (YELLOW) Urine Appearance CLEAR (CLEAR) Urine pH 8.5 (5-6) Ur Specific [place] 1.015 (1.005-1.025) POC Urine Protein Conf NEGATIVE (Negative) Urine Ketones NEGATIVE (NEGATIVE) Urine Nitrite NEGATIVE (NEGATIVE) Urine Bilirubin NEGATIVE (NEGATIVE) Urine Urobilinogen 1 (0-1) mg/dL Urine Leukocytes NEGATIVE (NEGATIVE) Urine WBC (Auto) NONE (0-5) /HPF Urine RBC (Auto) 3-5 (0-2) /HPF U Epithel Cells (Auto) RARE (FEW) /HPF Urine Bacteria (Auto) RARE (NEGATIVE) /HPF Urine RBC TRACE-INTACT (0-5) Jimbo/ul Urine Mucus (Auto) SLIGHT (NEGATIVE) /HPF Ur Culture Indicated? NO Urine Glucose NEGATIVE (NEGATIVE) mg/dL Influenza Type A Ag (NEGATIVE) Influenza Type B Ag (NEGATIVE) RSV (PCR) (Negative) SARS-CoV-2 (PCR) (NEGATIVE) 07/12/21 07/12/21 07/12/21 Range/Units 10:15 13:15 13:16 WBC (4.0-10.5) K/mm3 RBC (4.1-5.4) M/mm3 Hgb (12.0-16.0) gm/dl Hct (35-47) % MCV (78-100) fl MCH (26-32) pg MCHC (32-36) g/dl RDW (11.5-14.0) % Plt Count (150-450) K/mm3 MPV (7.5-11.0) fl Gran % (36.0-66.0) % Eos # (Auto) (0-0.5) Absolute Lymphs (auto) (1.0-4.6) Absolute Monos (auto) (0.0-1.3) Lymphocytes % (24.0-44.0) % Monocytes % (0.0-12.0) % Eosinophils % (0.00-5.0) % Basophils % (0.0-0.4) % Absolute Granulocytes (1.4-6.9) Basophils # (0-0.4) Sodium (137-145) mmol/L Potassium (3.5-5.1) mmol/L Chloride (98-107) mmol/L Carbon Dioxide (22-30) mmol/L Anion Gap (5-15) MEQ/L BUN (7-17) mg/dL Creatinine (0.52-1.04) mg/dL Estimated GFR ML/MIN Glucose (74-106) mg/dL Lactic Acid 2.3 H 2.5 H (0.4-2.0) Calcium (8.4-10.2) mg/dL Magnesium (1.6-2.3) mg/dL Total Bilirubin (0.2-1.3) mg/dL AST (14-36) U/L ALT (0-35) U/L Alkaline Phosphatase (38-126) U/L Troponin I < 0.012 (0.000-0.034) ng/mL NT-Pro-B Natriuret Pep 231 (0-900) pg/mL Serum Total Protein (6.3-8.2) g/dL Albumin (3.5-5.0) g/dL Lipase (23-300) U/L Urinalys Dipstick Clnc Urine Color (YELLOW) Urine Appearance (CLEAR) Urine pH (5-6) Ur Specific [place] (1.005-1.025) POC Urine Protein Conf (Negative) Urine Ketones (NEGATIVE) Urine Nitrite (NEGATIVE) Urine Bilirubin (NEGATIVE) Urine Urobilinogen (0-1) mg/dL Urine Leukocytes (NEGATIVE) Urine WBC (Auto) (0-5) /HPF Urine RBC (Auto) (0-2) /HPF U Epithel Cells (Auto) (FEW) /HPF Urine Bacteria (Auto) (NEGATIVE) /HPF Urine RBC (0-5) Jimbo/ul Urine Mucus (Auto) (NEGATIVE) /HPF Ur Culture Indicated? Urine Glucose (NEGATIVE) mg/dL Influenza Type A Ag (NEGATIVE) Influenza Type B Ag (NEGATIVE) RSV (PCR) (Negative) SARS-CoV-2 (PCR) (NEGATIVE) 07/12/21 07/12/21 07/12/21 Range/Units 15:09 15:45 15:50 WBC (4.0-10.5) K/mm3 RBC (4.1-5.4) M/mm3 Hgb (12.0-16.0) gm/dl Hct (35-47) % MCV (78-100) fl MCH (26-32) pg MCHC (32-36) g/dl RDW (11.5-14.0) % Plt Count (150-450) K/mm3 MPV (7.5-11.0) fl Gran % (36.0-66.0) % Eos # (Auto) (0-0.5) Absolute Lymphs (auto) (1.0-4.6) Absolute Monos (auto) (0.0-1.3) Lymphocytes % (24.0-44.0) % Monocytes % (0.0-12.0) % Eosinophils % (0.00-5.0) % Basophils % (0.0-0.4) % Absolute Granulocytes (1.4-6.9) Basophils # (0-0.4) Sodium (137-145) mmol/L Potassium (3.5-5.1) mmol/L Chloride (98-107) mmol/L Carbon Dioxide (22-30) mmol/L Anion Gap (5-15) MEQ/L BUN (7-17) mg/dL Creatinine (0.52-1.04) mg/dL Estimated GFR ML/MIN Glucose (74-106) mg/dL Lactic Acid 1.3 (0.4-2.0) Calcium (8.4-10.2) mg/dL Magnesium (1.6-2.3) mg/dL Total Bilirubin (0.2-1.3) mg/dL AST (14-36) U/L ALT (0-35) U/L Alkaline Phosphatase (38-126) U/L Troponin I < 0.012 (0.000-0.034) ng/mL NT-Pro-B Natriuret Pep (0-900) pg/mL Serum Total Protein (6.3-8.2) g/dL Albumin (3.5-5.0) g/dL Lipase (23-300) U/L Urinalys Dipstick Clnc Urine Color (YELLOW) Urine Appearance (CLEAR) Urine pH (5-6) Ur Specific [place] (1.005-1.025) POC Urine Protein Conf (Negative) Urine Ketones (NEGATIVE) Urine Nitrite (NEGATIVE) Urine Bilirubin (NEGATIVE) Urine Urobilinogen (0-1) mg/dL Urine Leukocytes (NEGATIVE) Urine WBC (Auto) (0-5) /HPF Urine RBC (Auto) (0-2) /HPF U Epithel Cells (Auto) (FEW) /HPF Urine Bacteria (Auto) (NEGATIVE) /HPF Urine RBC (0-5) Jimbo/ul Urine Mucus (Auto) (NEGATIVE) /HPF Ur Culture Indicated? Urine Glucose (NEGATIVE) mg/dL Influenza Type A Ag NEGATIVE (NEGATIVE) Influenza Type B Ag NEGATIVE (NEGATIVE) RSV (PCR) NEGATIVE (Negative) SARS-CoV-2 (PCR) NEGATIVE (NEGATIVE) 07/12/21 07/12/21 07/13/21 Range/Units 20:08 23:08 04:36 WBC 6.5 (4.0-10.5) K/mm3 RBC 3.98 L (4.1-5.4) M/mm3 Hgb 12.9 (12.0-16.0) gm/dl Hct 38.4 (35-47) % MCV 96.5 (78-100) fl MCH 32.4 H (26-32) pg MCHC 33.6 (32-36) g/dl RDW 13.2 (11.5-14.0) % Plt Count 211 (150-450) K/mm3 MPV 11.1 H (7.5-11.0) fl Gran % 73.3 H (36.0-66.0) % Eos # (Auto) 0.17 (0-0.5) Absolute Lymphs (auto) 0.66 L (1.0-4.6) Absolute Monos (auto) 0.86 (0.0-1.3) Lymphocytes % 10.2 L (24.0-44.0) % Monocytes % 13.3 H (0.0-12.0) % Eosinophils % 2.6 (0.00-5.0) % Basophils % 0.6 (0.0-0.4) % Absolute Granulocytes 4.74 (1.4-6.9) Basophils # 0.04 (0-0.4) Sodium (137-145) mmol/L Potassium (3.5-5.1) mmol/L Chloride (98-107) mmol/L Carbon Dioxide (22-30) mmol/L Anion Gap (5-15) MEQ/L BUN (7-17) mg/dL Creatinine (0.52-1.04) mg/dL Estimated GFR ML/MIN Glucose (74-106) mg/dL Lactic Acid (0.4-2.0) Calcium (8.4-10.2) mg/dL Magnesium (1.6-2.3) mg/dL Total Bilirubin (0.2-1.3) mg/dL AST (14-36) U/L ALT (0-35) U/L Alkaline Phosphatase (38-126) U/L Troponin I < 0.012 < 0.012 (0.000-0.034) ng/mL NT-Pro-B Natriuret Pep (0-900) pg/mL Serum Total Protein (6.3-8.2) g/dL Albumin (3.5-5.0) g/dL Lipase (23-300) U/L Urinalys Dipstick Clnc Urine Color (YELLOW) Urine Appearance (CLEAR) Urine pH (5-6) Ur Specific [place] (1.005-1.025) POC Urine Protein Conf (Negative) Urine Ketones (NEGATIVE) Urine Nitrite (NEGATIVE) Urine Bilirubin (NEGATIVE) Urine Urobilinogen (0-1) mg/dL Urine Leukocytes (NEGATIVE) Urine WBC (Auto) (0-5) /HPF Urine RBC (Auto) (0-2) /HPF U Epithel Cells (Auto) (FEW) /HPF Urine Bacteria (Auto) (NEGATIVE) /HPF Urine RBC (0-5) Jimbo/ul Urine Mucus (Auto) (NEGATIVE) /HPF Ur Culture Indicated? Urine Glucose (NEGATIVE) mg/dL Influenza Type A Ag (NEGATIVE) Influenza Type B Ag (NEGATIVE) RSV (PCR) (Negative) SARS-CoV-2 (PCR) (NEGATIVE) 07/13/21 Range/Units 04:36 WBC (4.0-10.5) K/mm3 RBC (4.1-5.4) M/mm3 Hgb (12.0-16.0) gm/dl Hct (35-47) % MCV (78-100) fl MCH (26-32) pg MCHC (32-36) g/dl RDW (11.5-14.0) % Plt Count (150-450) K/mm3 MPV (7.5-11.0) fl Gran % (36.0-66.0) % Eos # (Auto) (0-0.5) Absolute Lymphs (auto) (1.0-4.6) Absolute Monos (auto) (0.0-1.3) Lymphocytes % (24.0-44.0) % Monocytes % (0.0-12.0) % Eosinophils % (0.00-5.0) % Basophils % (0.0-0.4) % Absolute Granulocytes (1.4-6.9) Basophils # (0-0.4) Sodium 135 L (137-145) mmol/L Potassium 3.7 (3.5-5.1) mmol/L Chloride 102 (98-107) mmol/L Carbon Dioxide 24 (22-30) mmol/L Anion Gap 12.2 (5-15) MEQ/L BUN 14 (7-17) mg/dL Creatinine 0.65 (0.52-1.04) mg/dL Estimated GFR > 60.0 ML/MIN Glucose 119 H (74-106) mg/dL Lactic Acid (0.4-2.0) Calcium 8.7 (8.4-10.2) mg/dL Magnesium (1.6-2.3) mg/dL Total Bilirubin 0.50 (0.2-1.3) mg/dL AST 21 (14-36) U/L ALT 14 (0-35) U/L Alkaline Phosphatase 67 (38-126) U/L Troponin I (0.000-0.034) ng/mL NT-Pro-B Natriuret Pep (0-900) pg/mL Serum Total Protein 6.3 (6.3-8.2) g/dL Albumin 3.5 (3.5-5.0) g/dL Lipase (23-300) U/L Urinalys Dipstick Clnc Urine Color (YELLOW) Urine Appearance (CLEAR) Urine pH (5-6) Ur Specific [place] (1.005-1.025) POC Urine Protein Conf (Negative) Urine Ketones (NEGATIVE) Urine Nitrite (NEGATIVE) Urine Bilirubin (NEGATIVE) Urine Urobilinogen (0-1) mg/dL Urine Leukocytes (NEGATIVE) Urine WBC (Auto) (0-5) /HPF Urine RBC (Auto) (0-2) /HPF U Epithel Cells (Auto) (FEW) /HPF Urine Bacteria (Auto) (NEGATIVE) /HPF Urine RBC (0-5) Jimbo/ul Urine Mucus (Auto) (NEGATIVE) /HPF Ur Culture Indicated? Urine Glucose (NEGATIVE) mg/dL Influenza Type A Ag (NEGATIVE) Influenza Type B Ag (NEGATIVE) RSV (PCR) (Negative) SARS-CoV-2 (PCR) (NEGATIVE) - Radiology Exams Ordered Rad Exams-Entire Visit: Radiology Procedures Category Date Time Status CHEST 1 VIEW (PORTABLE) Stat Exams 07/12/21 10:15 Completed CHEST WITH CONTRAST [CT] Stat Exams 07/12/21 11:40 Completed HEAD WITHOUT CONTRAST [CT] Stat Exams 07/12/21 10:17 Completed - Procedures and Test Procedures and Tests throughout Hospitalization: Therapy Orders & Screens 07/12/21 16:51 Oxygen Nasal Cannula 2 lpm Comment: - Discharge Disposition: Home, Self-Care Condition: Stable Prescriptions: New Lisinopril 5 mg [Zestril 5 MG] 5 mg PO DAILY 30 Days #30 tablet Azithromycin [Azithromycin 250 mg Pack] 250 mg PO UD #1 packet No Action Aspirin EC 325 mg [Ecotrin 325 MG] 325 mg PO DAILY lisinopriL [Lisinopril] 5 mg PO DAILY Vit A/Vit C/Vit E/Zinc/Copper [Preservision Areds Softgel] 2 cap PO DAILY Calcium Carbonate [Calcium] 500 mg PO DAILY Instructions: Generalized Weakness (DC) Additional Instructions: Keep your appointment with Dr. Rust tomorrow. If you feel short of breath, dizzy, or any of your symptoms return, you can return to ER
== END 2021-07-13 10:15 | disposition home or self-care (01) ==
LOC: ED 09:36 → MED SURG 16:49
PROVIDERS: ADMIT Family Medicine; ATTEND Family Medicine
DX: R42 Dizziness and giddiness (principal); H65.01 Acute serous otitis media, right ear; J06.9 Acute upper respiratory infection, unspecified; I10 Essential (primary) hypertension; I25.10 Atherosclerotic heart disease of native coronary artery without angina pectoris; Z20.828 Contact with and (suspected) exposure to other viral communicable diseases
CPT/HCPCS: 0241U; 36000; 36415; 70450; 71045; 71260; 80053; 81015; 83605; 83690; 83735; 83880; 84484; 85025; 93005; 94760; 94762; 96374; 96376; 99285; 93268; 96375; J2405; A9270-GY; G0378

== ENCOUNTER 2021-09-07 08:08 | Emergency (ER) | payer MEDICARE ==
--- NOTE | 2021-09-07 08:12 | ERPHSYRPT ---
- History of Present Illness Time Seen by Provider: 09/07/21 08:12 Source: patient Exam Limitations: no limitations Physician History: This is an obese 71-year-old white female patient of Dr. Rust who called out to ambulance because of shortness of air. However, her complaint is more dizziness. Patient does have a history of anxiety issues. Her of many years recently. Patient was seen on 07/12/2021 and had similar symptoms. Her work-up was negative for any acute abnormality. Patient has a history of hypertension, hyperlipidemia, anxiety and coronary artery disease. She is status post coronary artery stenting. She does not have chest pain. Patient denies hitting her head. She has no flulike symptoms. She did not take her blood pressure medication or her medication for anxiety (meclizine). The meclizine does not appear to help her and makes her feel worse per her report. Patient was brought in by the ambulance service Activities at Onset: none Severity of Dyspnea-Max: mild Severity of Dyspnea-Current: mild Possible Cause: occasional episodes Modifying Factors: Improves With: activity Associated Symptoms: anxiety, lightheadedness, weakness, dizziness Allergies/Adverse Reactions: No Known Drug Allergies Allergy (Verified 09/07/21 08:22) Home Medications: Aspirin EC 325 mg [Ecotrin 325 MG] 325 mg PO DAILY 07/12/21 [History] lisinopriL [Lisinopril] 5 mg PO DAILY 07/12/21 [History] Cholecalciferol (Vitamin D3) [D-2000] 2,000 unit PO DAILY 09/07/21 [History] Pravastatin Sodium 10 mg PO DAILY 09/07/21 [History] Hx Tetanus, Diphtheria Vaccination/Date Given: No Hx Influenza Vaccination/Date Given: Yes Hx Pneumococcal Vaccination/Date Given: No Travel Risk - International Travel Have you traveled outside of the country in past 3 weeks: No - Coronavirus Screening Are you exhibiting any of the following symptoms?: No Close contact with a COVID-19 positive Pt in past 14-21 Days: No - Vaccine Status Have you recieved a Covid-19 vaccination: Yes 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 - Vaccination Dates Date of 2cond Vaccination (if applicable): 07/2020 - Review of Systems Constitutional: Weakness Eyes: No Symptoms Ears, Nose, & Throat: No Symptoms Respiratory: Dyspnea Cardiac: No Symptoms Abdominal/Gastrointestinal: No Symptoms Genitourinary Symptoms: No Symptoms Musculoskeletal: No Symptoms Skin: No Symptoms Neurological: Dizziness Psychological: No Symptoms Endocrine: No Symptoms Hematologic/Lymphatic: No Symptoms Immunological/Allergic: No Symptoms All Other Systems: Reviewed and Negative - Past Medical History Pertinent Past Medical History: Yes Neurological History: No Pertinent History ENT History: No Pertinent History Cardiac History: Coronary Artery Disease, High Cholesterol, Hypertension Respiratory History: No Pertinent History Endocrine Medical History: No Pertinent History Musculoskeletal History: Fractures GI Medical History: No Pertinent History History: No Pertinent History Psycho-Social History: No Pertinent History Female Reproductive Disorders: No Pertinent History Other Medical History: FX RIGHT ANKLE - BOOTED X 8 WEEKS. ONE STENT PLACED IN HEART 2005. HYSTERECTOMY 22 YEARS AGO. - Past Surgical History Past Surgical History: Yes Neuro Surgical History: No Pertinent History Cardiac: Cardiac Stent Respiratory: No Pertinent History Genitourinary: No Pertinent History Musculoskeletal: No Pertinent History Female Surgical History: Hysterectomy Other Surgical History: d & C. complete hysterectomy. appi - Social History Smoking Status: Never smoker Exposure to second hand smoke: Yes Drug Use: none Patient Lives Alone: Yes - Nursing Vital Signs Nursing Vital Signs: Initial Vital Signs Temperature 96.9 F 09/07/21 08:10 Pulse Rate 80 09/07/21 08:10 Respiratory Rate 32 H 09/07/21 08:10 Blood Pressure 167/88 09/07/21 08:10 O2 Sat by Pulse Oximetry 100 09/07/21 08:10 Pain Scale Pain Intensity 0 - Physical Exam General Appearance: no apparent distress, alert, anxiety Eye Exam: PERRL/EOMI, eyes nml inspection Ears, Nose, Throat Exam: hearing grossly normal, normal ENT inspection, normal pharynx Neck Exam: normal inspection, non-tender, supple, full range of motion Respiratory Exam: normal breath sounds, lungs clear, airway intact, No chest tenderness, No respiratory distress Cardiovascular/Chest Exam: normal heart sounds, regular rate/rhythm, normal peripheral pulses, No murmur Abdominal/Gastrointestinal Exam: soft, normal bowel sounds, No tenderness Rectal Exam: not done Extremity Exam: non-tender, normal range of motion, normal inspection Neurologic Exam: alert, oriented x 3, cooperative, 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 Today's EKG has improved when compared to EKG dated 07/12/2021) Ordered Tests: Active Orders 24 hr Category Date Time Status EKG-ER Only STAT Care 09/07/21 08:36 Active IV Insertion STAT Care 09/07/21 08:36 Active House Regular Diet Diet 09/07/21 Dinner Active CHEST 1 VIEW (PORTABLE) Stat Exams 09/07/21 09:29 Completed HEAD WITHOUT CONTRAST [CT] Stat Exams 09/07/21 09:03 Completed CBC W DIFF Stat Lab 09/07/21 09:11 Completed CMP Stat Lab 09/07/21 09:11 Completed MAGNESIUM Stat Lab 09/07/21 09:11 Completed TROPONIN Q3H Lab 09/07/21 09:11 Completed TROPONIN Q3H Lab 09/07/21 11:32 Completed TROPONIN Q3H Lab 09/07/21 14:38 Completed TROPONIN Q3H Lab 09/07/21 17:45 Ordered TROPONIN Q3H Lab 09/07/21 20:45 Ordered UA W/RFX CULTURE Stat Lab 09/07/21 10:56 Completed Urine Triage Profile Stat Lab 09/07/21 09:37 Completed Medication Summary Generic Name Dose Route Start Last Admin Trade Name Freq PRN Reason Stop Dose Admin Sodium Chloride 1,000 mls @ 100 mls/hr 09/07/21 08:45 09/07/21 09:09 Sodium Chloride 0.9% 1000 Ml IV 10/07/21 08:44 100 mls/hr .Q10H LISA Administration Discontinued Medications Generic Name Dose Route Start Last Admin Trade Name Freq PRN Reason Stop Dose Admin Enalaprilat 1.25 mg 09/07/21 08:39 09/07/21 09:08 Enalaprilat 2.5 Mg Injection IV 09/07/21 08:40 1.25 mg STAT ONE Administration Enalaprilat Confirm 09/07/21 09:05 Enalaprilat 2.5 Mg Injection Administered 09/07/21 09:06 Dose 2.5 mg IV .STK-MED ONE Lorazepam 0.5 mg 09/07/21 09:17 09/07/21 09:25 Lorazepam 2 Mg/1 Ml 2 Mg Vial IV 09/07/21 09:18 0.5 mg STAT ONE Administration Lorazepam Confirm 09/07/21 09:23 Lorazepam 2 Mg/1 Ml 2 Mg Vial Administered 09/07/21 09:24 Dose 2 mg .ROUTE .STK-MED ONE Lab/Rad Data: Laboratory Result Diagrams 09/07/21 09:11 09/07/21 09:11 Laboratory Results 09/07/21 09/07/21 09/07/21 Range/Units 14:38 11:32 10:56 WBC (4.0-10.5) x10^3/uL RBC (4.1-5.4) x10^6/uL Hgb (12.0-16.0) g/dL Hct (35-47) % MCV (78-100) fL MCH (26-32) pg MCHC (32-36) g/dL RDW (11.5-14.0) % Plt Count (150-450) x10^3/uL MPV (7.5-11.0) fL Gran % (36.0-66.0) % Immature Gran % (Auto) (0.00-0.4) % Nucleat RBC Rel Count (0.00-0.1) % Eos # (Auto) (0-0.5) x10^3/uL Immature Gran # (Auto) (0.00-0.03) x10^3u/L Absolute Lymphs (auto) (1.0-4.6) x10^3/uL Absolute Monos (auto) (0.0-1.3) x10^3/uL Absolute Nucleated RBC (0.00-0.01) x10^3u/L Lymphocytes % (24.0-44.0) % Monocytes % (0.0-12.0) % Eosinophils % (0.00-5.0) % Basophils % (0.0-0.4) % Absolute Granulocytes (1.4-6.9) x10^3/uL Basophils # (0-0.4) x10^3/uL Sodium (137-145) mmol/L Potassium (3.5-5.1) mmol/L Chloride (98-107) mmol/L Carbon Dioxide (22-30) mmol/L Anion Gap (5-15) MEQ/L BUN (7-17) mg/dL Creatinine (0.52-1.04) mg/dL Estimated GFR ML/MIN Glucose (74-106) mg/dL Calcium (8.4-10.2) mg/dL Magnesium (1.6-2.3) mg/dL Total Bilirubin (0.2-1.3) mg/dL AST (14-36) U/L ALT (0-35) U/L Alkaline Phosphatase (38-126) U/L Troponin I < 0.012 < 0.012 (0.000-0.034) ng/mL Serum Total Protein (6.3-8.2) g/dL Albumin (3.5-5.0) g/dL Urinalys Dipstick Clnc MAIN LAB Urine Color LT.YELLOW (YELLOW) Urine Appearance CLEAR (CLEAR) Urine pH 7.0 (5-6) Ur Specific [place] 1.015 (1.005-1.025) POC Urine Protein Conf NEGATIVE (Negative) Urine Ketones NEGATIVE (NEGATIVE) Urine Nitrite NEGATIVE (NEGATIVE) Urine Bilirubin NEGATIVE (NEGATIVE) Urine Urobilinogen 0.2 (0-1) mg/dL Urine Leukocytes NEGATIVE (NEGATIVE) Urine WBC (Auto) NONE (0-5) /HPF Urine RBC (Auto) NONE SEEN (0-2) /HPF U Epithel Cells (Auto) NONE (FEW) /HPF Urine Bacteria (Auto) NONE SEEN (NEGATIVE) /HPF Urine RBC NEGATIVE (0-5) Jimbo/ul Urine Mucus (Auto) SLIGHT (NEGATIVE) /HPF Ur Culture Indicated? NO Urine Glucose NEGATIVE (NEGATIVE) mg/dL Urine Opiates Level (NEGATIVE) Ur Methadone (NEGATIVE) Urine Barbiturates (NEGATIVE) Ur Phencyclidine (PCP) (NEGATIVE) Urine Amphetamine (NEGATIVE) U Benzodiazepine Level (NEGATIVE) Urine Cocaine (NEGATIVE) Urine Marijuana (THC) (NEGATIVE) 09/07/21 09/07/21 09/07/21 Range/Units 09:37 09:11 09:11 WBC (4.0-10.5) x10^3/uL RBC (4.1-5.4) x10^6/uL Hgb (12.0-16.0) g/dL Hct (35-47) % MCV (78-100) fL MCH (26-32) pg MCHC (32-36) g/dL RDW (11.5-14.0) % Plt Count (150-450) x10^3/uL MPV (7.5-11.0) fL Gran % (36.0-66.0) % Immature Gran % (Auto) (0.00-0.4) % Nucleat RBC Rel Count (0.00-0.1) % Eos # (Auto) (0-0.5) x10^3/uL Immature Gran # (Auto) (0.00-0.03) x10^3u/L Absolute Lymphs (auto) (1.0-4.6) x10^3/uL Absolute Monos (auto) (0.0-1.3) x10^3/uL Absolute Nucleated RBC (0.00-0.01) x10^3u/L Lymphocytes % (24.0-44.0) % Monocytes % (0.0-12.0) % Eosinophils % (0.00-5.0) % Basophils % (0.0-0.4) % Absolute Granulocytes (1.4-6.9) x10^3/uL Basophils # (0-0.4) x10^3/uL Sodium 137 (137-145) mmol/L Potassium 4.4 (3.5-5.1) mmol/L Chloride 104 (98-107) mmol/L Carbon Dioxide 27 (22-30) mmol/L Anion Gap 11.3 (5-15) MEQ/L BUN 16 (7-17) mg/dL Creatinine 0.75 (0.52-1.04) mg/dL Estimated GFR > 60.0 ML/MIN Glucose 106 (74-106) mg/dL Calcium 9.8 (8.4-10.2) mg/dL Magnesium 1.8 (1.6-2.3) mg/dL Total Bilirubin 0.90 (0.2-1.3) mg/dL AST 24 (14-36) U/L ALT 16 (0-35) U/L Alkaline Phosphatase 90 (38-126) U/L Troponin I < 0.012 (0.000-0.034) ng/mL Serum Total Protein 7.3 (6.3-8.2) g/dL Albumin 4.3 (3.5-5.0) g/dL Urinalys Dipstick Clnc Urine Color (YELLOW) Urine Appearance (CLEAR) Urine pH (5-6) Ur Specific [place] (1.005-1.025) POC Urine Protein Conf (Negative) Urine Ketones (NEGATIVE) Urine Nitrite (NEGATIVE) Urine Bilirubin (NEGATIVE) Urine Urobilinogen (0-1) mg/dL Urine Leukocytes (NEGATIVE) Urine WBC (Auto) (0-5) /HPF Urine RBC (Auto) (0-2) /HPF U Epithel Cells (Auto) (FEW) /HPF Urine Bacteria (Auto) (NEGATIVE) /HPF Urine RBC (0-5) Jimbo/ul Urine Mucus (Auto) (NEGATIVE) /HPF Ur Culture Indicated? Urine Glucose (NEGATIVE) mg/dL Urine Opiates Level NEGATIVE (NEGATIVE) Ur Methadone NEGATIVE (NEGATIVE) Urine Barbiturates NEGATIVE (NEGATIVE) Ur Phencyclidine (PCP) NEGATIVE (NEGATIVE) Urine Amphetamine NEGATIVE (NEGATIVE) U Benzodiazepine Level NEGATIVE (NEGATIVE) Urine Cocaine NEGATIVE (NEGATIVE) Urine Marijuana (THC) NEGATIVE (NEGATIVE) 09/07/21 Range/Units 09:11 WBC 6.4 (4.0-10.5) x10^3/uL RBC 4.62 (4.1-5.4) x10^6/uL Hgb 14.7 (12.0-16.0) g/dL Hct 43.7 (35-47) % MCV 94.6 (78-100) fL MCH 31.8 (26-32) pg MCHC 33.6 (32-36) g/dL RDW 13.1 (11.5-14.0) % Plt Count 242 (150-450) x10^3/uL MPV 10.7 (7.5-11.0) fL Gran % 64.2 (36.0-66.0) % Immature Gran % (Auto) 0.2 (0.00-0.4) % Nucleat RBC Rel Count 0.0 (0.00-0.1) % Eos # (Auto) 0.07 (0-0.5) x10^3/uL Immature Gran # (Auto) 0.01 (0.00-0.03) x10^3u/L Absolute Lymphs (auto) 1.63 (1.0-4.6) x10^3/uL Absolute Monos (auto) 0.53 (0.0-1.3) x10^3/uL Absolute Nucleated RBC 0.00 (0.00-0.01) x10^3u/L Lymphocytes % 25.4 (24.0-44.0) % Monocytes % 8.3 (0.0-12.0) % Eosinophils % 1.1 (0.00-5.0) % Basophils % 0.8 (0.0-0.4) % Absolute Granulocytes 4.13 (1.4-6.9) x10^3/uL Basophils # 0.05 (0-0.4) x10^3/uL Sodium (137-145) mmol/L Potassium (3.5-5.1) mmol/L Chloride (98-107) mmol/L Carbon Dioxide (22-30) mmol/L Anion Gap (5-15) MEQ/L BUN (7-17) mg/dL Creatinine (0.52-1.04) mg/dL Estimated GFR ML/MIN Glucose (74-106) mg/dL Calcium (8.4-10.2) mg/dL Magnesium (1.6-2.3) mg/dL Total Bilirubin (0.2-1.3) mg/dL AST (14-36) U/L ALT (0-35) U/L Alkaline Phosphatase (38-126) U/L Troponin I (0.000-0.034) ng/mL Serum Total Protein (6.3-8.2) g/dL Albumin (3.5-5.0) g/dL Urinalys Dipstick Clnc Urine Color (YELLOW) Urine Appearance (CLEAR) Urine pH (5-6) Ur Specific [place] (1.005-1.025) POC Urine Protein Conf (Negative) Urine Ketones (NEGATIVE) Urine Nitrite (NEGATIVE) Urine Bilirubin (NEGATIVE) Urine Urobilinogen (0-1) mg/dL Urine Leukocytes (NEGATIVE) Urine WBC (Auto) (0-5) /HPF Urine RBC (Auto) (0-2) /HPF U Epithel Cells (Auto) (FEW) /HPF Urine Bacteria (Auto) (NEGATIVE) /HPF Urine RBC (0-5) Jimbo/ul Urine Mucus (Auto) (NEGATIVE) /HPF Ur Culture Indicated? Urine Glucose (NEGATIVE) mg/dL Urine Opiates Level (NEGATIVE) Ur Methadone (NEGATIVE) Urine Barbiturates (NEGATIVE) Ur Phencyclidine (PCP) (NEGATIVE) Urine Amphetamine (NEGATIVE) U Benzodiazepine Level (NEGATIVE) Urine Cocaine (NEGATIVE) Urine Marijuana (THC) (NEGATIVE) - Progress Progress: improved, re-examined Air Movement: good Progress Note: 09/07/21 09:28 CT of head without contrast is negative for any acute intracranial process 09/07/21 11:21 Medical decision making: This patient seems depressed to me. This may be the underlying cause of her symptoms. Medically, she appears to be stable. This is the second work-up for the same symptomatology in the last 6 weeks. We did discuss with the patient's daughter about obtaining a psychologic evaluation. I believe there is an under lying degree of depression and anxiety related to the fact the patient is alone and recently lost her . 09/07/21 16:18 Medical decision making: This patient was cleared medically to be evaluated by psychology. [facility] came and did a in person one-on-one evaluation. They diagnosed the patient with anxiety and depression. Their recommendation is to discharge the patient to home with instructions to follow-up with her primary care physician and with [facility] as an outpatient. The patient is not suicidal and not homicidal. She expressed this to me and also to the [facility]. Blood Culture(s) Obtained: No Antibiotics given: No Counseled pt/family regarding: lab results, diagnosis, rad results - Departure Departure Disposition: Home Clinical Impression: Dizziness, Anxiety, Depression Condition: Stable Critical Care Time: No Referrals: FAVIO RUST DO [Primary Care Provider] - Follow up/PCP as directed Additional Instructions: Take your medications as prescribed. Follow-up with your primary care physician for further evaluation and management of your anxiety and depression. Follow-up with [facility] as an outpatient for further evaluation management of anxiety and depression symptoms.
[2021-09-07] MEDS ORDERED: ENALAPRILAT 2.5 MG INJECTION IV ONE ×2 (08:39→09:05)
[2021-09-07] MEDS ORDERED: Sodium Chloride 0.9% 1000 ML 1,000 ML IV SCH (08:45)
[2021-09-07] MEDS ORDERED: Sodium Chloride 0.9% 1000 ML 1,000 ML ONE (09:06)
[2021-09-07] MEDS ORDERED: Ativan 2 MG/1 ML VIAL IV ONE (09:17)
[2021-09-07] MEDS ORDERED: Ativan 2 MG/1 ML VIAL ONE (09:23)
--- NOTE | 2021-09-07 09:24 | XRAY ---
Indication: Dizziness. No known injury. Multiple contiguous axial images obtained through the head without contrast. Comparison: July 12, 2021. Again age-appropriate global atrophy. No acute intracranial hemorrhage, abnormal extra-axial fluid collection, or mass effect. Fourth ventricle is midline without hydrocephalus. Bony calvarium intact. Again near complete opacification left maxillary sinus. Remaining paranasal sinuses and mastoid air cells are clear. Impression: Continued left maxillary sinus disease. Remaining CT head without contrast exam is again negative.
[2021-09-07 09:27] LABS: Absolute Neutrophil Ct (ANC) 4.13 x10^3/uL (1.4-6.9); Basophil (Absolute #) 0.05 x10^3/uL (0-0.4); Eosinophil % 1.1 % (0.00-5.0); Eosinophil (Absolute #) 0.07 x10^3/uL (0-0.5); Hematocrit 43.7 % (35-47); Hemoglobin 14.7 g/dL (12.0-16.0); Lymphocyte (Absolute #) 1.63 x10^3/uL (1.0-4.6); Lymphocytes % 25.4 % (24.0-44.0); Mean Cell Volume 94.6 fL (78-100); Mean Corpuscular Hemoglobin 31.8 pg (26-32); Mean Corpuscular Hgb Concent. 33.6 g/dL (32-36); Mean Platelet Volume 10.7 fL (7.5-11.0); Monocyte (Absolute #) 0.53 x10^3/uL (0.0-1.3); Monocytes % 8.3 % (0.0-12.0); Neutrophil % 64.2 % (36.0-66.0); Platelet Count 242 x10^3/uL (150-450); Red Blood Count 4.62 x10^6/uL (4.1-5.4); Red Cell Distribution Width 13.1 % (11.5-14.0); White Blood Count 6.4 x10^3/uL (4.0-10.5)
[2021-09-07 09:29] LABS: ALBUMIN 4.3 g/dL (3.5-5.0); ALKALINE PHOSPHATASE 90 U/L (38-126); ANION GAP 11.3 MEQ/L (5-15); BLOOD UREA NITROGEN 16 mg/dL (7-17); CHLORIDE 104 mmol/L (98-107); Calcium 9.8 mg/dL (8.4-10.2); Carbon Dioxide 27 mmol/L (22-30); Creatinine 1 0.75 mg/dL (0.52-1.04); EST GLOMERULAR FILTRATION RATE > 60.0 ML/MIN; Glucose 106 mg/dL (74-106); MAGNESIUM 1.8 mg/dL (1.6-2.3); Potassium 4.4 mmol/L (3.5-5.1); SGOT/AST 24 U/L (14-36); SGPT/ALT 16 U/L (0-35); SODIUM 137 mmol/L (137-145); Total Protein 7.3 g/dL (6.3-8.2)
--- NOTE | 2021-09-07 09:52 | XRAY ---
Indication: Short of breath. Comparison: July 12, 2021. Portable chest unchanged again demonstrating minimal right mid to lower lung fibrosis/scarring. Remaining heart and lungs normal. Bony thorax intact. No new/acute findings.
[2021-09-07 11:06] LABS: Mucus SLIGHT /HPF (NEGATIVE)
[2021-09-07 11:07] LABS: Appearance CLEAR (CLEAR); Bacteria NONE SEEN /HPF (NEGATIVE); Bilirubin NEGATIVE (NEGATIVE); Glucose NEGATIVE (NEGATIVE); Ketones NEGATIVE (NEGATIVE); Nitrite NEGATIVE (NEGATIVE); Protein,Urine Dip NEGATIVE (Negative); RBC NEGATIVE Ery/ul (0-5); RBC NONE SEEN /HPF (0-2); Specific Gravity 1.015 (1.005-1.025); Urine Cultured Indicated? NO; Urobilinogen 0.2 mg/dL (0-1)
[2021-09-07 11:10] LABS: Dipstick done @ ? MAIN LAB
[2021-09-07 11:19] LABS: Amphetamine,Urine NEGATIVE (NEGATIVE); Barbiturate,Urine NEGATIVE (NEGATIVE); Benzodiazepine,Urine NEGATIVE (NEGATIVE); Cocaine,Urine NEGATIVE (NEGATIVE); Methadone,Urine NEGATIVE (NEGATIVE); Opiate,Urine NEGATIVE (NEGATIVE); PCP,Urine NEGATIVE (NEGATIVE); THC,Urine NEGATIVE (NEGATIVE)
[2021-09-07 15:03] VITALS: O2SAT 96
[2021-09-07 16:15] VITALS: BP 132/73; PULSE 102
== END 2021-09-07 16:37 | disposition home or self-care (01) ==
LOC: ED 08:08
DX: F41.9 Anxiety disorder, unspecified (principal); F32.A Depression, unspecified; R42 Dizziness and giddiness; Z63.4 Disappearance and death of family member; E78.5 Hyperlipidemia, unspecified; I10 Essential (primary) hypertension
CPT/HCPCS: 36415; 70450; 71045; 80053; 80307; 81015; 83735; 84484; 85025; 93005; 96374; 96375; 99284; J2060

== ENCOUNTER 2021-09-11 15:27 | Emergency (ER) | payer MEDICARE ==
--- NOTE | 2021-09-11 15:58 | ERPHSYRPT ---
- History of Present Illness Time Seen by Provider: 09/11/21 15:53 Source: patient Exam Limitations: no limitations Patient Subjective Stated Complaint: Dizziness Triage Nursing Assessment: Patient brought back to ED per w/c and transferred to bed with assit of 1. Patient complains of dizziness, nausea and weakness since last night. Patient denies pain or discomfort. Physician History: This is a 71-year-old white female patient of Dr. Rust has a history of hypertension, elevated cholesterol, anxiety and coronary artery disease. Patient has had intermittent periods of anxiety which is associated with mild shortness of breath. She has been seen on 2 different occasions in the last 2 months. She has had CAT scans of the head on 2 occasions and they have been normal. She was last seen here in the emergency department 4 days ago for the same issue. Her recently. It is felt that this has major contribution to her symptoms. Daughter has stated that the patient's mother, since her , has been a recluse at home and not interacting. Her symptoms are dizziness, nausea and low-grade fever. She has no known exposures to individuals with similar symptoms or with diagnoses of flus. Patient is not suicidal or homicidal. Timing/Duration: other (Chronic recurrent) Severity: mild Associated Symptoms: nausea, fever, other (Dizziness) Allergies/Adverse Reactions: No Known Drug Allergies Allergy (Verified 09/11/21 15:48) Home Medications: Aspirin EC 325 mg [Ecotrin 325 MG] 325 mg PO DAILY 07/12/21 [History] lisinopriL [Lisinopril] 5 mg PO DAILY 07/12/21 [History] Cholecalciferol (Vitamin D3) [] 2,000 unit PO DAILY 09/07/21 [History] Pravastatin Sodium 10 mg PO DAILY 09/07/21 [History] Hx Tetanus, Diphtheria Vaccination/Date Given: No Hx Influenza Vaccination/Date Given: Yes Hx Pneumococcal Vaccination/Date Given: No Immunizations Up to Date: Yes Travel Risk - International Travel Have you traveled outside of the country in past 3 weeks: No - Coronavirus Screening Are you exhibiting any of the following symptoms?: No Close contact with a COVID-19 positive Pt in past 14-21 Days: No - Vaccine Status Have you recieved a Covid-19 vaccination: Yes [employer]: Moderna - Vaccination Dates Date of 2cond Vaccination (if applicable): 07/2020 - Review of Systems Constitutional: Fever Eyes: No Symptoms Ears, Nose, & Throat: No Symptoms Respiratory: No Symptoms Cardiac: No Symptoms Abdominal/Gastrointestinal: Nausea, No Abdominal Pain, No Vomiting Genitourinary Symptoms: No Symptoms Musculoskeletal: No Symptoms Skin: No Symptoms Neurological: No Symptoms Psychological: No Symptoms Endocrine: No Symptoms Hematologic/Lymphatic: No Symptoms Immunological/Allergic: No Symptoms All Other Systems: Reviewed and Negative - Past Medical History Pertinent Past Medical History: Yes Neurological History: No Pertinent History ENT History: No Pertinent History Cardiac History: Coronary Artery Disease, High Cholesterol, Hypertension Respiratory History: No Pertinent History Endocrine Medical History: No Pertinent History Musculoskeletal History: Fractures GI Medical History: No Pertinent History History: No Pertinent History Psycho-Social History: No Pertinent History Female Reproductive Disorders: No Pertinent History Other Medical History: FX RIGHT ANKLE - BOOTED X 8 WEEKS. ONE STENT PLACED IN HEART 2005. HYSTERECTOMY 22 YEARS AGO. - Past Surgical History Past Surgical History: Yes Neuro Surgical History: No Pertinent History Cardiac: Cardiac Stent Respiratory: No Pertinent History Genitourinary: No Pertinent History Musculoskeletal: No Pertinent History Female Surgical History: Hysterectomy Other Surgical History: d & C. complete hysterectomy. appi - Social History Smoking Status: Never smoker Exposure to second hand smoke: Yes Drug Use: none Patient Lives Alone: Yes - Nursing Vital Signs Nursing Vital Signs: Initial Vital Signs Temperature 99.9 F 09/11/21 15:48 Pulse Rate 113 H 09/11/21 15:48 Respiratory Rate 18 09/11/21 15:48 Blood Pressure 172/96 09/11/21 15:48 O2 Sat by Pulse Oximetry 99 09/11/21 15:48 Pain Scale Pain Intensity 6 - Physical Exam General Appearance: no apparent distress, alert, anxiety Eye Exam: PERRL/EOMI, eyes nml inspection Ears, Nose, Throat Exam: normal ENT inspection, moist mucous membranes Neck Exam: normal inspection, non-tender, supple, full range of motion Respiratory Exam: normal breath sounds, lungs clear, airway intact (Mild), No chest tenderness, No respiratory distress Cardiovascular Exam: tachycardia Gastrointestinal/Abdomen Exam: soft, normal bowel sounds, No tenderness Pelvic Exam: not done Rectal Exam: not done Back Exam: normal inspection, normal range of motion, No CVA tenderness, No vertebral tenderness Extremity Exam: normal inspection, normal range of motion, pelvis stable Neurologic Exam: alert, oriented x 3, cooperative, presetter operator II-XII nml as tested, normal mood/affect, nml cerebellar function, nml station & gait, sensation nml Skin Exam: normal color, warm, dry Lymphatic Exam: No adenopathy SpO2 Interpretation: normal SpO2: 99 O2 Delivery: Room Air - Course Nursing assessment & vital signs reviewed: Yes EKG Interpreted by Me: RATE (105), Sinus Tach, NORMAL AXIS, NORMAL INTERVALS, NORMAL QRS, Non-specific ST Changes, Other (No acute ischemic changes.) Ordered Tests: Active Orders 24 hr Category Date Time Status EKG-ER Only STAT Care 09/11/21 15:58 Active IV Insertion STAT Care 09/11/21 16:29 Active CBC W DIFF Stat Lab 09/11/21 15:58 Completed CMP Stat Lab 09/11/21 15:58 Completed Cascade Screen Stat Lab 09/11/21 16:00 Completed T4 (Thyroxine) Stat Lab 09/11/21 16:30 Completed TROPONIN Q3H Lab 09/11/21 16:00 Completed TROPONIN Q3H Lab 09/11/21 19:00 Ordered TROPONIN Q3H Lab 09/11/21 22:00 Ordered TROPONIN Q3H Lab 09/12/21 01:00 Ordered TROPONIN Q3H Lab 09/12/21 04:00 Ordered TSH [TSH, 3RD Generation] Stat Lab 09/11/21 16:30 Completed UA W/RFX CULTURE Stat Lab 09/11/21 17:51 Completed Medication Summary Generic Name Dose Route Start Last Admin Trade Name Freq PRN Reason Stop Dose Admin Sodium Chloride 1,000 mls @ 999 mls/hr 09/11/21 18:05 09/11/21 18:10 Sodium Chloride 0.9% 1000 Ml IV 09/11/21 19:05 999 mls/hr .Q1H1M STA Administration Discontinued Medications Generic Name Dose Route Start Last Admin Trade Name Freq PRN Reason Stop Dose Admin Acetaminophen 975 mg 09/11/21 18:08 09/11/21 18:09 Acetaminophen 325 Mg Tablet PO 09/11/21 18:09 975 mg STAT STA Administration Acetaminophen Confirm 09/11/21 18:09 Acetaminophen 325 Mg Tablet Administered 09/11/21 18:10 Dose 975 mg .ROUTE .STK-MED ONE Sodium Chloride 1,000 mls @ 999 mls/hr 09/11/21 16:30 09/11/21 17:54 Sodium Chloride 0.9% 1000 Ml IV 09/11/21 17:30 Infused .Q1H1M STA Infusion Sodium Chloride Confirm 09/11/21 16:42 Sodium Chloride 0.9% 1000 Ml Administered 09/11/21 16:43 Dose 1,000 mls @ ud .ROUTE .STK-MED ONE Sodium Chloride Confirm 09/11/21 18:09 Sodium Chloride 0.9% 1000 Ml Administered 09/11/21 18:10 Dose 1,000 mls @ ud .ROUTE .STK-MED ONE Ondansetron HCl 4 mg 09/11/21 16:30 09/11/21 16:44 Ondansetron Hcl 4 Mg/2 Ml Vial IV 09/11/21 16:31 4 mg STAT ONE Administration Ondansetron HCl Confirm 09/11/21 16:42 Ondansetron Hcl 4 Mg/2 Ml Vial Administered 09/11/21 16:43 Dose 4 mg .ROUTE .STK-MED ONE Lab/Rad Data: Laboratory Result Diagrams 09/11/21 15:58 09/11/21 15:58 Laboratory Results 09/11/21 09/11/21 09/11/21 Range/Units 17:51 16:30 16:30 WBC (4.0-10.5) x10^3/uL RBC (4.1-5.4) x10^6/uL Hgb (12.0-16.0) g/dL Hct (35-47) % MCV (78-100) fL MCH (26-32) pg MCHC (32-36) g/dL RDW (11.5-14.0) % Plt Count (150-450) x10^3/uL MPV (7.5-11.0) fL Gran % (36.0-66.0) % Immature Gran % (Auto) (0.00-0.4) % Nucleat RBC Rel Count (0.00-0.1) % Eos # (Auto) (0-0.5) x10^3/uL Immature Gran # (Auto) (0.00-0.03) x10^3u/L Absolute Lymphs (auto) (1.0-4.6) x10^3/uL Absolute Monos (auto) (0.0-1.3) x10^3/uL Absolute Nucleated RBC (0.00-0.01) x10^3u/L Lymphocytes % (24.0-44.0) % Monocytes % (0.0-12.0) % Eosinophils % (0.00-5.0) % Basophils % (0.0-0.4) % Absolute Granulocytes (1.4-6.9) x10^3/uL Basophils # (0-0.4) x10^3/uL Sodium (137-145) mmol/L Potassium (3.5-5.1) mmol/L Chloride (98-107) mmol/L Carbon Dioxide (22-30) mmol/L Anion Gap (5-15) MEQ/L BUN (7-17) mg/dL Creatinine (0.52-1.04) mg/dL Estimated GFR ML/MIN Glucose (74-106) mg/dL Calcium (8.4-10.2) mg/dL Total Bilirubin (0.2-1.3) mg/dL AST (14-36) U/L ALT (0-35) U/L Alkaline Phosphatase (38-126) U/L Troponin I (0.000-0.034) ng/mL Serum Total Protein (6.3-8.2) g/dL Albumin (3.5-5.0) g/dL Thyroxine (T4) 6.76 (5.53-10.96) ug/dL TSH 3rd Generation 0.389 L (0.47-4.68) mIU/L Urinalys Dipstick Clnc MAIN LAB Urine Color DARK YELLOW (YELLOW) Urine Appearance CLEAR (CLEAR) Urine pH 6.5 (5-6) Ur Specific [place] 1.025 (1.005-1.025) POC Urine Protein Conf TRACE (Negative) Urine Ketones MODERATE-40 (NEGATIVE) Urine Nitrite NEGATIVE (NEGATIVE) Urine Bilirubin SMALL (NEGATIVE) Urine Urobilinogen 2 (0-1) mg/dL Urine Leukocytes NEGATIVE (NEGATIVE) Urine WBC (Auto) 0-2 (0-5) /HPF Urine RBC (Auto) 6-10 (0-2) /HPF U Epithel Cells (Auto) RARE (FEW) /HPF Urine Bacteria (Auto) NONE (NEGATIVE) /HPF Urine RBC SMALL (0-5) Jimbo/ul Urine Mucus (Auto) SLIGHT (NEGATIVE) /HPF Ur Culture Indicated? NO Urine Glucose NEGATIVE (NEGATIVE) mg/dL Monoscreen (Negative) 09/11/21 09/11/21 09/11/21 Range/Units 16:00 16:00 15:58 WBC (4.0-10.5) x10^3/uL RBC (4.1-5.4) x10^6/uL Hgb (12.0-16.0) g/dL Hct (35-47) % MCV (78-100) fL MCH (26-32) pg MCHC (32-36) g/dL RDW (11.5-14.0) % Plt Count (150-450) x10^3/uL MPV (7.5-11.0) fL Gran % (36.0-66.0) % Immature Gran % (Auto) (0.00-0.4) % Nucleat RBC Rel Count (0.00-0.1) % Eos # (Auto) (0-0.5) x10^3/uL Immature Gran # (Auto) (0.00-0.03) x10^3u/L Absolute Lymphs (auto) (1.0-4.6) x10^3/uL Absolute Monos (auto) (0.0-1.3) x10^3/uL Absolute Nucleated RBC (0.00-0.01) x10^3u/L Lymphocytes % (24.0-44.0) % Monocytes % (0.0-12.0) % Eosinophils % (0.00-5.0) % Basophils % (0.0-0.4) % Absolute Granulocytes (1.4-6.9) x10^3/uL Basophils # (0-0.4) x10^3/uL Sodium 133 L (137-145) mmol/L Potassium 3.9 (3.5-5.1) mmol/L Chloride 99 (98-107) mmol/L Carbon Dioxide 25 (22-30) mmol/L Anion Gap 13.3 (5-15) MEQ/L BUN 15 (7-17) mg/dL Creatinine 0.83 (0.52-1.04) mg/dL Estimated GFR > 60.0 ML/MIN Glucose 123 H (74-106) mg/dL Calcium 9.3 (8.4-10.2) mg/dL Total Bilirubin 0.90 (0.2-1.3) mg/dL AST 48 H (14-36) U/L ALT 49 H (0-35) U/L Alkaline Phosphatase 90 (38-126) U/L Troponin I < 0.012 (0.000-0.034) ng/mL Serum Total Protein 7.0 (6.3-8.2) g/dL Albumin 3.8 (3.5-5.0) g/dL Thyroxine (T4) (5.53-10.96) ug/dL TSH 3rd Generation (0.47-4.68) mIU/L Urinalys Dipstick Clnc Urine Color (YELLOW) Urine Appearance (CLEAR) Urine pH (5-6) Ur Specific [place] (1.005-1.025) POC Urine Protein Conf (Negative) Urine Ketones (NEGATIVE) Urine Nitrite (NEGATIVE) Urine Bilirubin (NEGATIVE) Urine Urobilinogen (0-1) mg/dL Urine Leukocytes (NEGATIVE) Urine WBC (Auto) (0-5) /HPF Urine RBC (Auto) (0-2) /HPF U Epithel Cells (Auto) (FEW) /HPF Urine Bacteria (Auto) (NEGATIVE) /HPF Urine RBC (0-5) Jimbo/ul Urine Mucus (Auto) (NEGATIVE) /HPF Ur Culture Indicated? Urine Glucose (NEGATIVE) mg/dL Monoscreen NEGATIVE (Negative) 09/11/21 Range/Units 15:58 WBC 11.3 H (4.0-10.5) x10^3/uL RBC 4.28 (4.1-5.4) x10^6/uL Hgb 13.7 (12.0-16.0) g/dL Hct 39.8 (35-47) % MCV 93.0 (78-100) fL MCH 32.0 (26-32) pg MCHC 34.4 (32-36) g/dL RDW 12.9 (11.5-14.0) % Plt Count 163 (150-450) x10^3/uL MPV 11.0 (7.5-11.0) fL Gran % 84.4 H (36.0-66.0) % Immature Gran % (Auto) 0.4 (0.00-0.4) % Nucleat RBC Rel Count 0.0 (0.00-0.1) % Eos # (Auto) 0.01 (0-0.5) x10^3/uL Immature Gran # (Auto) 0.04 H (0.00-0.03) x10^3u/L Absolute Lymphs (auto) 0.85 L (1.0-4.6) x10^3/uL Absolute Monos (auto) 0.81 (0.0-1.3) x10^3/uL Absolute Nucleated RBC 0.00 (0.00-0.01) x10^3u/L Lymphocytes % 7.5 L (24.0-44.0) % Monocytes % 7.2 (0.0-12.0) % Eosinophils % 0.1 (0.00-5.0) % Basophils % 0.4 (0.0-0.4) % Absolute Granulocytes 9.56 H (1.4-6.9) x10^3/uL Basophils # 0.04 (0-0.4) x10^3/uL Sodium (137-145) mmol/L Potassium (3.5-5.1) mmol/L Chloride (98-107) mmol/L Carbon Dioxide (22-30) mmol/L Anion Gap (5-15) MEQ/L BUN (7-17) mg/dL Creatinine (0.52-1.04) mg/dL Estimated GFR ML/MIN Glucose (74-106) mg/dL Calcium (8.4-10.2) mg/dL Total Bilirubin (0.2-1.3) mg/dL AST (14-36) U/L ALT (0-35) U/L Alkaline Phosphatase (38-126) U/L Troponin I (0.000-0.034) ng/mL Serum Total Protein (6.3-8.2) g/dL Albumin (3.5-5.0) g/dL Thyroxine (T4) (5.53-10.96) ug/dL TSH 3rd Generation (0.47-4.68) mIU/L Urinalys Dipstick Clnc Urine Color (YELLOW) Urine Appearance (CLEAR) Urine pH (5-6) Ur Specific [place] (1.005-1.025) POC Urine Protein Conf (Negative) Urine Ketones (NEGATIVE) Urine Nitrite (NEGATIVE) Urine Bilirubin (NEGATIVE) Urine Urobilinogen (0-1) mg/dL Urine Leukocytes (NEGATIVE) Urine WBC (Auto) (0-5) /HPF Urine RBC (Auto) (0-2) /HPF U Epithel Cells (Auto) (FEW) /HPF Urine Bacteria (Auto) (NEGATIVE) /HPF Urine RBC (0-5) Jimbo/ul Urine Mucus (Auto) (NEGATIVE) /HPF Ur Culture Indicated? Urine Glucose (NEGATIVE) mg/dL Monoscreen (Negative) - Progress Progress: improved Progress Note: 09/11/21 16:29 Patient did not follow-up as an outpatient for psychiatric evaluation management. 09/11/21 16:29 I am not repeating CAT scan of the head without contrast in this patient. She has had 2 negative CAT scans of the head without contrast in the last 2 months. She did not have any traumatic injury to her head. Counseled pt/family regarding: lab results, diagnosis, need for follow-up - Departure Departure Disposition: Home Clinical Impression: Dizziness, nonspecific, Anxiety, Depression, Mild dehydration Condition: Stable Critical Care Time: No Referrals: FAVIO RUST DO [Primary Care Provider] - Follow up/PCP as directed Additional Instructions: Use your antinausea medicine as prescribed. Follow-up with outpatient mental health facility as instructed from 09/07/2021. Take all your other medications as prescribed. Drink plenty of fluids daily Prescriptions: Ondansetron ODT 4 MG [Zofran Odt 4 mg] 4 mg PO Q6H PRN PRN #10 tablet PRN Reason: Vomiting
[2021-09-11] MEDS ORDERED: Sodium Chloride 0.9% 1000 ML 1,000 ML IV STA ×2 (16:30→18:05)
[2021-09-11] MEDS ORDERED: Zofran 4 MG/2 ML VIAL IV ONE (16:30)
[2021-09-11 16:40] LABS: Absolute Neutrophil Ct (ANC) 9.56 x10^3/uL (1.4-6.9); Basophil (Absolute #) 0.04 x10^3/uL (0-0.4); Eosinophil % 0.1 % (0.00-5.0); Eosinophil (Absolute #) 0.01 x10^3/uL (0-0.5); Hematocrit 39.8 % (35-47); Hemoglobin 13.7 g/dL (12.0-16.0); Lymphocyte (Absolute #) 0.85 x10^3/uL (1.0-4.6); Lymphocytes % 7.5 % (24.0-44.0); Mean Corpuscular Hgb Concent. 34.4 g/dL (32-36); Monocyte (Absolute #) 0.81 x10^3/uL (0.0-1.3); Monocytes % 7.2 % (0.0-12.0); Neutrophil % 84.4 % (36.0-66.0); Platelet Count 163 x10^3/uL (150-450); Red Blood Count 4.28 x10^6/uL (4.1-5.4); Red Cell Distribution Width 12.9 % (11.5-14.0); White Blood Count 11.3 x10^3/uL (4.0-10.5)
[2021-09-11] MEDS ORDERED: Sodium Chloride 0.9% 1000 ML 1,000 ML ONE ×2 (16:42→18:09)
[2021-09-11] MEDS ORDERED: Zofran 4 MG/2 ML VIAL ONE (16:42)
[2021-09-11 17:00] LABS: ALBUMIN 3.8 g/dL (3.5-5.0); ALKALINE PHOSPHATASE 90 U/L (38-126); ANION GAP 13.3 MEQ/L (5-15); BLOOD UREA NITROGEN 15 mg/dL (7-17); CHLORIDE 99 mmol/L (98-107); Calcium 9.3 mg/dL (8.4-10.2); Carbon Dioxide 25 mmol/L (22-30); Creatinine 1 0.83 mg/dL (0.52-1.04); EST GLOMERULAR FILTRATION RATE > 60.0 ML/MIN; Glucose 123 mg/dL (74-106); Potassium 3.9 mmol/L (3.5-5.1); SGOT/AST 48 U/L (14-36); SGPT/ALT 49 U/L (0-35); SODIUM 133 mmol/L (137-145)
[2021-09-11 18:03] LABS: Appearance CLEAR (CLEAR); Bilirubin SMALL (NEGATIVE); Dipstick done @ ? MAIN LAB; Glucose NEGATIVE (NEGATIVE); Ketones MODERATE-40 (NEGATIVE); Nitrite NEGATIVE (NEGATIVE); Ph 6.5 (5-6); Protein,Urine Dip TRACE (Negative); RBC SMALL Ery/ul (0-5); Specific Gravity 1.025 (1.005-1.025); Urobilinogen 2 mg/dL (0-1)
[2021-09-11 18:04] LABS: Epithelial Cells RARE /HPF (FEW); Mucus SLIGHT /HPF (NEGATIVE); WBC 0-2 /HPF (0-5)
[2021-09-11 18:07] LABS: Urine Cultured Indicated? NO
[2021-09-11] MEDS ORDERED: TYLENOL 325 MG PO STA (18:08)
[2021-09-11] MEDS ORDERED: TYLENOL 325 MG ONE (18:09)
[2021-09-11 18:13] VITALS: BP 121/70; PULSE 84
[2021-09-11 18:53] VITALS: O2SAT 99
[2021-09-11 19:22] LABS: INFLUENZA A NEGATIVE (NEGATIVE); INFLUENZA B NEGATIVE (NEGATIVE); RESPIRATORY SYNCTIAL VIRUS NEGATIVE (Negative); SARS-CoV-2 Xpert Express NEGATIVE (NEGATIVE)
== END 2021-09-11 19:11 | disposition home or self-care (01) ==
LOC: ED 15:27
DX: F32.A Depression, unspecified (principal); F41.9 Anxiety disorder, unspecified; R42 Dizziness and giddiness; E86.0 Dehydration; Z63.4 Disappearance and death of family member; R11.0 Nausea; E78.5 Hyperlipidemia, unspecified; I10 Essential (primary) hypertension; Z79.899 Other long term (current) drug therapy
CPT/HCPCS: 0241U; 36000; 36415; 80053; 81015; 84436; 84443; 84484; 85025; 86308; 93005; 96360; 96374; 99284; J2405; A9270-GY

== ENCOUNTER 2021-09-15 02:01 | Emergency (ER) | payer MEDICARE ==
--- NOTE | 2021-09-15 02:14 | ERPHSYRPT ---
- History of Present Illness Time Seen by Provider: 09/15/21 02:12 Historian: patient Exam Limitations: no limitations Physician History: This is a 71-year-old white female patient of Dr. Rust has a history of hypertension elevated cholesterol anxiety, depression and coronary artery disease who has been seen either in the emergency department or by Dr. Jj several times since 09/07/2021. She lost her and brother recently to and patient has been depressed and anxious. She lives alone. I have seen this patient 3 times since 09/07/2021. Her complaints have varied from shortness of breath to dizziness to abdominal pain. Patient was evaluated by mental health services at one of the recent emergency room visits. She has not followed up with them as an outpatient. Patient was seen by Dr. Jj yesterday and had lab work done as well as a liver ultrasound. Liver ultrasound shows a partially contracted gallbladder. No other significant findings are noted. Her liver function tests have increased significantly since those labs obtained on 09/11/2021. Patient presents today with dizziness and nausea. She has mild abdominal pain that is generalized in location. Timing/Duration: other Activities at Onset: none (Chronic) Abdominal Pain Onset Location: generalized abdomen (Mild) Severity of Pain-Max: mild Severity of Pain-Current: mild Modifying Factors: Improves With: other (Nausea is her biggest) Associated Symptoms: loss of appetite, nausea ( complaint), No fever/chills Previous symptoms: same symptoms as today, recently treated Allergies/Adverse Reactions: No Known Drug Allergies Allergy (Verified 09/11/21 15:48) Home Medications: Aspirin EC 325 mg [Ecotrin 325 MG] 325 mg PO DAILY 07/12/21 [History] lisinopriL [Lisinopril] 5 mg PO DAILY 07/12/21 [History] Cholecalciferol (Vitamin D3) [D] 2,000 unit PO DAILY 09/07/21 [History] Pravastatin Sodium 10 mg PO DAILY 09/07/21 [History] Hx Tetanus, Diphtheria Vaccination/Date Given: No Hx Influenza Vaccination/Date Given: Yes Hx Pneumococcal Vaccination/Date Given: No Travel Risk - International Travel Have you traveled outside of the country in past 3 weeks: No - Coronavirus Screening Are you exhibiting any of the following symptoms?: No Close contact with a COVID-19 positive Pt in past 14-21 Days: No - Vaccine Status Have you recieved a Covid-19 vaccination: Yes Schedule Checker: Moderna - Vaccination Dates Date of 2cond Vaccination (if applicable): 07/2020 - Review of Systems Constitutional: No Symptoms Eyes: No Symptoms Ears, Nose, & Throat: No Symptoms Respiratory: No Symptoms Cardiac: No Symptoms Abdominal/Gastrointestinal: Nausea Genitourinary Symptoms: No Symptoms Musculoskeletal: No Symptoms Skin: No Symptoms Psychological: No Symptoms Endocrine: No Symptoms Hematologic/Lymphatic: No Symptoms Immunological/Allergic: No Symptoms All Other Systems: Reviewed and Negative - Past Medical History Pertinent Past Medical History: Yes Neurological History: No Pertinent History ENT History: No Pertinent History Cardiac History: Coronary Artery Disease, High Cholesterol, Hypertension Respiratory History: No Pertinent History Endocrine Medical History: No Pertinent History Musculoskeletal History: Fractures GI Medical History: No Pertinent History History: No Pertinent History Psycho-Social History: No Pertinent History Female Reproductive Disorders: No Pertinent History Other Medical History: FX RIGHT ANKLE - BOOTED X 8 WEEKS. ONE STENT PLACED IN HEART 2005. HYSTERECTOMY 22 YEARS AGO. - Past Surgical History Past Surgical History: Yes Neuro Surgical History: No Pertinent History Cardiac: Cardiac Stent Respiratory: No Pertinent History Genitourinary: No Pertinent History Musculoskeletal: No Pertinent History Female Surgical History: Hysterectomy Other Surgical History: d & C. complete hysterectomy. appi - Social History Smoking Status: Never smoker Exposure to second hand smoke: Yes Drug Use: none Patient Lives Alone: Yes - Nursing Vital Signs Nursing Vital Signs: Initial Vital Signs Temperature 98.6 F 09/15/21 02:20 Pulse Rate 87 09/15/21 02:20 Respiratory Rate 16 09/15/21 02:20 Blood Pressure 135/66 09/15/21 02:20 O2 Sat by Pulse Oximetry 94 L 09/15/21 02:20 Pain Scale Pain Intensity 3 - Physical Exam General Appearance: no apparent distress, alert, anxiety, obese Eye Exam: PERRL/EOMI, eyes nml inspection Ears, Nose, Throat Exam: normal ENT inspection, moist mucous membranes Neck Exam: normal inspection, non-tender, supple, full range of motion Respiratory Exam: normal breath sounds, lungs clear, No chest tenderness, No respiratory distress Cardiovascular Exam: regular rate/rhythm, normal heart sounds, normal peripheral pulses Gastrointestinal/Abdomen Exam: soft, normal bowel sounds, No tenderness Pelvic Exam: not done Rectal Exam: not done Back Exam: normal inspection, normal range of motion, No CVA tenderness, No vertebral tenderness Extremity Exam: normal inspection, normal range of motion, pelvis stable Neurologic Exam: alert, oriented x 3, cooperative, 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, normal mood/affect, nml cerebellar function, nml station & gait, sensation nml Skin Exam: normal color, warm, dry Lymphatic Exam: No adenopathy SpO2 Interpretation: normal O2 Delivery: Room Air - Course Nursing assessment & vital signs reviewed: Yes Ordered Tests: Active Orders 24 hr Category Date Time Status IV Insertion STAT Care 09/15/21 02:35 Active ABDOMEN AND PELVIS W/0 CONTRAS [CT] Stat Exams 09/15/21 02:35 Taken AMYLASE Stat Lab 09/15/21 03:00 Completed CBC W DIFF Stat Lab 09/15/21 02:35 Completed CMP Stat Lab 09/15/21 00:50 Completed CULTURE,URINE Stat Lab 09/15/21 04:06 Received LIPASE Stat Lab 09/15/21 03:00 Completed Lactic Acid Stat Lab 09/15/21 03:00 Completed UA W/RFX CULTURE Stat Lab 09/15/21 04:06 Completed Medication Summary Discontinued Medications Generic Name Dose Route Start Last Admin Trade Name Freq PRN Reason Stop Dose Admin Sodium Chloride 1,000 mls @ 999 mls/hr 09/15/21 02:35 09/15/21 05:13 Sodium Chloride 0.9% 1000 Ml IV 09/15/21 03:35 Infused .Q1H1M STA Infusion Sodium Chloride Confirm 09/15/21 02:44 Sodium Chloride 0.9% 1000 Ml Administered 09/15/21 02:45 Dose 1,000 mls @ ud .ROUTE .STK-MED ONE Sodium Chloride 500 mls @ 500 mls/hr 09/15/21 04:36 09/15/21 06:05 Sodium Chloride 0.9% 500 Ml IV 09/15/21 05:35 Infused .Q1H ONE Infusion Sodium Chloride Confirm 09/15/21 04:42 Sodium Chloride 0.9% 500 Ml Administered 09/15/21 04:43 Dose 500 mls @ ud IV .STK-MED ONE Lab/Rad Data: Laboratory Result Diagrams 09/15/21 02:35 09/15/21 00:50 Laboratory Results 09/15/21 09/15/21 09/15/21 Range/Units 04:06 03:00 03:00 WBC (4.0-10.5) x10^3/uL RBC (4.1-5.4) x10^6/uL Hgb (12.0-16.0) g/dL Hct (35-47) % MCV (78-100) fL MCH (26-32) pg MCHC (32-36) g/dL RDW (11.5-14.0) % Plt Count (150-450) x10^3/uL MPV (7.5-11.0) fL Gran % (36.0-66.0) % Immature Gran % (Auto) (0.00-0.4) % Nucleat RBC Rel Count (0.00-0.1) % Eos # (Auto) (0-0.5) x10^3/uL Immature Gran # (Auto) (0.00-0.03) x10^3u/L Absolute Lymphs (auto) (1.0-4.6) x10^3/uL Absolute Monos (auto) (0.0-1.3) x10^3/uL Absolute Nucleated RBC (0.00-0.01) x10^3u/L Lymphocytes % (24.0-44.0) % Monocytes % (0.0-12.0) % Eosinophils % (0.00-5.0) % Basophils % (0.0-0.4) % Absolute Granulocytes (1.4-6.9) x10^3/uL Basophils # (0-0.4) x10^3/uL Sodium (137-145) mmol/L Potassium (3.5-5.1) mmol/L Chloride (98-107) mmol/L Carbon Dioxide (22-30) mmol/L Anion Gap (5-15) MEQ/L BUN (7-17) mg/dL Creatinine (0.52-1.04) mg/dL Estimated GFR ML/MIN Glucose (74-106) mg/dL Lactic Acid 1.5 (0.4-2.0) Calcium (8.4-10.2) mg/dL Total Bilirubin (0.2-1.3) mg/dL AST (14-36) U/L ALT (0-35) U/L Alkaline Phosphatase (38-126) U/L Serum Total Protein (6.3-8.2) g/dL Albumin (3.5-5.0) g/dL Amylase 59 (30-110) U/L Lipase 59 (23-300) U/L Urinalys Dipstick Clnc MAIN LAB Urine Color DARK YELLOW (YELLOW) Urine Appearance SLIGHTLY CLOUDY (CLEAR) Urine pH 6.0 (5-6) Ur Specific [place] 1.015 (1.005-1.025) POC Urine Protein Conf 30 (Negative) Urine Ketones TRACE (NEGATIVE) Urine Nitrite NEGATIVE (NEGATIVE) Urine Bilirubin SMALL (NEGATIVE) Urine Urobilinogen >=8.0 (0-1) mg/dL Urine Leukocytes NEGATIVE (NEGATIVE) Urine WBC (Auto) 3-5 (0-5) /HPF Urine RBC (Auto) 3-5 (0-2) /HPF U Epithel Cells (Auto) RARE (FEW) /HPF Urine Bacteria (Auto) RARE (NEGATIVE) /HPF Urine RBC TRACE-INTACT (0-5) Jimbo/ul Urine Mucus (Auto) SLIGHT (NEGATIVE) /HPF Ur Culture Indicated? YES Urine Glucose NEGATIVE (NEGATIVE) mg/dL 09/15/21 09/15/21 Range/Units 02:35 00:50 WBC 9.2 (4.0-10.5) x10^3/uL RBC 4.03 L (4.1-5.4) x10^6/uL Hgb 12.9 (12.0-16.0) g/dL Hct 37.9 (35-47) % MCV 94.0 (78-100) fL MCH 32.0 (26-32) pg MCHC 34.0 (32-36) g/dL RDW 13.3 (11.5-14.0) % Plt Count 190 (150-450) x10^3/uL MPV 11.4 H (7.5-11.0) fL Gran % 83.9 H (36.0-66.0) % Immature Gran % (Auto) 0.4 (0.00-0.4) % Nucleat RBC Rel Count 0.0 (0.00-0.1) % Eos # (Auto) 0.01 (0-0.5) x10^3/uL Immature Gran # (Auto) 0.04 H (0.00-0.03) x10^3u/L Absolute Lymphs (auto) 0.68 L (1.0-4.6) x10^3/uL Absolute Monos (auto) 0.71 (0.0-1.3) x10^3/uL Absolute Nucleated RBC 0.00 (0.00-0.01) x10^3u/L Lymphocytes % 7.4 L (24.0-44.0) % Monocytes % 7.8 (0.0-12.0) % Eosinophils % 0.1 (0.00-5.0) % Basophils % 0.4 (0.0-0.4) % Absolute Granulocytes 7.68 H (1.4-6.9) x10^3/uL Basophils # 0.04 (0-0.4) x10^3/uL Sodium 131 L (137-145) mmol/L Potassium 4.5 D (3.5-5.1) mmol/L Chloride 102 (98-107) mmol/L Carbon Dioxide 21 L (22-30) mmol/L Anion Gap 12.5 (5-15) MEQ/L BUN 20 H (7-17) mg/dL Creatinine 0.72 (0.52-1.04) mg/dL Estimated GFR > 60.0 ML/MIN Glucose 128 H (74-106) mg/dL Lactic Acid (0.4-2.0) Calcium 8.8 (8.4-10.2) mg/dL Total Bilirubin 1.70 H (0.2-1.3) mg/dL AST 154 H (14-36) U/L ALT 69 H (0-35) U/L Alkaline Phosphatase 257 H (38-126) U/L Serum Total Protein 7.0 (6.3-8.2) g/dL Albumin 3.4 L (3.5-5.0) g/dL Amylase (30-110) U/L Lipase (23-300) U/L Urinalys Dipstick Clnc Urine Color (YELLOW) Urine Appearance (CLEAR) Urine pH (5-6) Ur Specific [place] (1.005-1.025) POC Urine Protein Conf (Negative) Urine Ketones (NEGATIVE) Urine Nitrite (NEGATIVE) Urine Bilirubin (NEGATIVE) Urine Urobilinogen (0-1) mg/dL Urine Leukocytes (NEGATIVE) Urine WBC (Auto) (0-5) /HPF Urine RBC (Auto) (0-2) /HPF U Epithel Cells (Auto) (FEW) /HPF Urine Bacteria (Auto) (NEGATIVE) /HPF Urine RBC (0-5) Jimbo/ul Urine Mucus (Auto) (NEGATIVE) /HPF Ur Culture Indicated? Urine Glucose (NEGATIVE) mg/dL - Progress Progress: improved, pain not gone completely Progress Note: 09/15/21 06:48 The nighttime radiology reading service has been on "slow time" for a few hours. We have attempted to expedite the reading of this CAT scan of the abdomen pelvis. We have called radiology assistant here at the hospital and he has called the nighttime radiology reading service. The nurses and myself have gone in and told the patient and the patient's daughter about the delay in reading. They have been patient and seem to understand. They were told he could leave but they have to sign AGAINST MEDICAL ADVICE form. They prefer to wait until the results of the CAT scan of the abdomen pelvis before they leave/discharge. Counseled pt/family regarding: lab results, diagnosis, need for follow-up - Departure Departure Disposition: Home Clinical Impression: Mild dehydration, Elevated liver function tests Condition: Stable Critical Care Time: No Referrals: FAVIO RUST, [Primary Care Provider] - Follow up/PCP as directed Additional Instructions: Drink plenty of clear liquids. Follow-up with Dr. Rust for further evaluation and management. Take all your medication as prescribed.
[2021-09-15] MEDS ORDERED: Sodium Chloride 0.9% 1000 ML 1,000 ML IV STA (02:35)
[2021-09-15] MEDS ORDERED: Sodium Chloride 0.9% 1000 ML 1,000 ML ONE (02:44)
[2021-09-15 02:59] LABS: Absolute Neutrophil Ct (ANC) 7.68 x10^3/uL (1.4-6.9); Basophil (Absolute #) 0.04 x10^3/uL (0-0.4); Eosinophil % 0.1 % (0.00-5.0); Eosinophil (Absolute #) 0.01 x10^3/uL (0-0.5); Hematocrit 37.9 % (35-47); Hemoglobin 12.9 g/dL (12.0-16.0); Lymphocyte (Absolute #) 0.68 x10^3/uL (1.0-4.6); Lymphocytes % 7.4 % (24.0-44.0); Mean Platelet Volume 11.4 fL (7.5-11.0); Monocyte (Absolute #) 0.71 x10^3/uL (0.0-1.3); Monocytes % 7.8 % (0.0-12.0); Neutrophil % 83.9 % (36.0-66.0); Platelet Count 190 x10^3/uL (150-450); Red Blood Count 4.03 x10^6/uL (4.1-5.4); Red Cell Distribution Width 13.3 % (11.5-14.0); White Blood Count 9.2 x10^3/uL (4.0-10.5)
[2021-09-15 03:21] LABS: AMYLASE 59 U/L (30-110); LIPASE 59 U/L (23-300)
[2021-09-15 04:33] LABS: Bacteria RARE /HPF (NEGATIVE); Epithelial Cells RARE /HPF (FEW); Mucus SLIGHT /HPF (NEGATIVE)
[2021-09-15 04:35] LABS: Appearance SLIGHTLY CLOUDY (CLEAR); Bilirubin SMALL (NEGATIVE); Dipstick done @ ? MAIN LAB; Glucose NEGATIVE (NEGATIVE); Ketones TRACE (NEGATIVE); Nitrite NEGATIVE (NEGATIVE); Protein,Urine Dip 30 (Negative); RBC TRACE-INTACT Ery/ul (0-5); Specific Gravity 1.015 (1.005-1.025); Urobilinogen >=8.0 mg/dL (0-1)
[2021-09-15 04:36] LABS: Urine Cultured Indicated? YES
[2021-09-15] MEDS ORDERED: Sodium Chloride 0.9% 500 ML 500 ML IV ONE ×2 (04:36→04:42)
[2021-09-15 04:46] LABS: ALBUMIN 3.4 g/dL (3.5-5.0); ALKALINE PHOSPHATASE 257 U/L (38-126); ANION GAP 12.5 MEQ/L (5-15); BLOOD UREA NITROGEN 20 mg/dL (7-17); CHLORIDE 102 mmol/L (98-107); Calcium 8.8 mg/dL (8.4-10.2); Carbon Dioxide 21 mmol/L (22-30); Creatinine 1 0.72 mg/dL (0.52-1.04); EST GLOMERULAR FILTRATION RATE > 60.0 ML/MIN; Glucose 128 mg/dL (74-106); SGOT/AST 154 U/L (14-36); SGPT/ALT 69 U/L (0-35); SODIUM 131 mmol/L (137-145)
[2021-09-15 04:50] LABS: Potassium 4.5 mmol/L (3.5-5.1)
[2021-09-15 07:28] VITALS: BP 130/72; PULSE 72; O2SAT 98
--- NOTE | 2021-09-15 09:18 | XRAY ---
Indication: Abdomen pain, weakness, nausea, vomiting, cough, short of breath, dizziness, lightheadedness, elevated liver enzymes, and elevated WBC. Multiple contiguous axial images obtained through the abdomen and pelvis without contrast. Comparison: None Lung bases demonstrate small right and tiny left effusions with minimal compressive atelectasis. Heart is not enlarged. Small hiatal hernia. Colon demonstrates scattered intraluminal radiopacities presumed ingested medication/bismuth versus barium. Stomach and bowel loops appear nonobstructed. Scattered descending and sigmoid diverticulosis without diverticulitis. Appendectomy and hysterectomy reported. Partially contracted gallbladder without obvious calculi. Spleen is enlarged measuring 13.7 cm. No free fluid/air. Left kidney appears mildly edematous with mild perinephric stranding suggesting underlying inflammatory/infectious process. Also multiple left parapelvic cysts. No renal calculus or evidence for obstructive uropathy in either system. Remaining liver, pancreas, adrenal glands, kidneys, ureters, and bladder are unremarkable for noncontrast exam. Minimal scattered aortic calcifications without AAA. Osseous structures intact with minimal/mild degenerative changes throughout the spine. Incidental bilateral inguinal subcutaneous varicosities. Impression: 1. Mild left renal edema with perinephric stranding. Rule out pyelonephritis. 2. Nonspecific bibasilar effusions without cardiomegaly. 2. Incidental small hiatal hernia, colonic diverticulosis, splenomegaly, left renal cysts, degenerative spondylosis, and bilateral inguinal varicosities. Comment: Preliminary interpretation made by [facility]. No critical discrepancy.
== END 2021-09-15 08:23 | disposition home or self-care (01) ==
LOC: ED 02:01
DX: E86.0 Dehydration (principal); R79.89 Other specified abnormal findings of blood chemistry; R42 Dizziness and giddiness; R11.0 Nausea; R10.84 Generalized abdominal pain; Z63.4 Disappearance and death of family member; I10 Essential (primary) hypertension; E78.5 Hyperlipidemia, unspecified; Z79.899 Other long term (current) drug therapy
CPT/HCPCS: 36000; 36415; 74176; 80053; 81015; 82150; 83605; 83690; 85025; 87086; 96360; 96361; 99284

== ENCOUNTER 2021-09-15 17:58 | Inpatient (IN) | payer MEDICARE ==
[2021-09-15 19:25] LABS: INFLUENZA A NEGATIVE (NEGATIVE); INFLUENZA B NEGATIVE (NEGATIVE); RESPIRATORY SYNCTIAL VIRUS NEGATIVE (Negative); SARS-CoV-2 Xpert Express NEGATIVE (NEGATIVE)
--- NOTE | 2021-09-15 19:35 | PCM.HP ---
History of Present Illness - Chief Complaint Chief Complaint: pyelonephritis,nausea,weakness History of Present Illness: is a 71 year old female of Dr Guerra has been to the ER at [facility] on 09/11/21 and 09/14/21 with N/V weakness,initially had mid right sided abdominal pain,elevated liver enz and elevarted bili . GBUS no stones no pericholic fluid. Abd/pelvic CT 09/14/21 consistent with left pyelonephritis. Patient states she is very hungry but nauseated and has vomited after eating. She is admitted to [facility] for IV hydration and IV antibiotics ,also gen surg eval for possible cholecystitis. PMHx includes HTN,CAD(stent 2005) vertigo,anxiety depression/grief. PSHx Hysterectomy - Review of Systems Constitutional: Fever, Lethargy, Weakness Eyes: No Symptoms Ears, Nose, & Throat: No Symptoms Respiratory: Other (occasional coug) Cardiac: No Symptoms Abdominal/Gastrointestinal: Abdominal Pain, Nausea, Vomiting, Other (is hungry but nauseated) Genitourinary Symptoms: Other (nocturia) Musculoskeletal: No Symptoms Skin: No Symptoms Neurological: Gait Changes (due to weakness but no focal weakness), Lethargy Psychological: Anxiety, Depression, Homicidal Ideations, Other (grief- passed not too long ago) Hematologic/Lymphatic: No Symptoms (takes ASA daily) Immunological/Allergic: Other (on Meclizine for transient dizziness) Medications & Allergies Home Medications: Home Medication List Aspirin EC 325 mg [Ecotrin 325 MG] 325 mg PO DAILY 07/12/21 [History Confirmed 09/15/21] lisinopriL [Lisinopril] 5 mg PO DAILY 07/12/21 [History Confirmed 09/15/21] Cholecalciferol (Vitamin D3) [D-2000] 2,000 unit PO DAILY 09/07/21 [History Confirmed 09/15/21] Pravastatin Sodium 10 mg PO QHS 09/07/21 [History Confirmed 09/15/21] Meclizine HCl 12.5 mg PO TID 09/15/21 [History Confirmed 09/15/21] Allergies/Adverse Reactions: Allergies Allergy/AdvReac Type Severity Reaction Status Date / Time No Known Drug Allergies Allergy Verified 09/11/21 15:48 - Past Medical History Past Medical History: Yes Neurological History: No Pertinent History ENT History: No Pertinent History Cardiac History: Coronary Artery Disease, High Cholesterol, Hypertension Respiratory History: No Pertinent History Endocrine Medical History: No Pertinent History Musculoskelatal History: Fractures GI Medical History: No Pertinent History History: No Pertinent History Pyscho-Social History: No Pertinent History Reproductive Disorders: No Pertinent History Comment: FX RIGHT ANKLE - BOOTED X 8 WEEKS. ONE STENT PLACED IN HEART 2005. HYSTERECTOMY 22 YEARS AGO. - Past Surgical History Past Surgical History: Yes Neuro Surgical History: No Pertinent History Cardiac History: Cardiac Stent Respiratory Surgery: No Pertinent History Genitourinary Surgical Hx: No Pertinent History Musculskeletal Surgical Hx: No Pertinent History Female Surgical History: Hysterectomy Other Surgical History: d & C. complete hysterectomy. appi - Social History Smoking Status: Never smoker Exposure to second hand smoke: Yes Alcohol: None Drug Use: none - Physical Exam General Appearance: mild distress (hot flushed,lethatgic) Neurologic Exam: alert (when spoken to), oriented x 3, cooperative Eye Exam: eyes nml inspection Ears, Nose, Throat Exam: normal ENT inspection Neck Exam: normal inspection Respiratory Exam: diminished breath sounds (bases), other (Started O2 ,O2 sats 88 up to 93% on 2L) Cardiovascular Exam: regular rate/rhythm Gastrointestinal/Abdomen Exam: soft Pelvic Exam: not done Rectal Exam: not done Back Exam: normal inspection Extremity Exam: other (no pitting edema,no calf tenderness) Skin Exam: other (face flushed ,hot) Assessment/Plan (1) Pyelonephritis Current Visit: Yes Status: Acute Assessment & Plan: left sided per CT in ER Code(s): N12 - TUBULO-INTERSTITIAL NEPHRITIS, NOT SPCF ACUTE OR CHRONIC (2) Fever Current Visit: Yes Status: Acute Assessment & Plan: spiked fever and flushing with tacypnea during admission PE - blood cultures ordered Code(s): R50.9 - FEVER, UNSPECIFIED (3) Nausea & vomiting Current Visit: Yes Status: Acute Assessment & Plan: improved /not vomiting now but still nauseated for a week Code(s): R11.2 - NAUSEA WITH VOMITING, UNSPECIFIED (4) Elevated liver enzymes Current Visit: Yes Status: Acute Assessment & Plan: originally with right upper abd pain -,not tender today, direct bili is elevated.Liver enz up 09/11/21. Has had CT abd/pelvis and GBUS (no stones) Code(s): R74.8 - ABNORMAL LEVELS OF OTHER SERUM ENZYMES (5) HTN (hypertension) Current Visit: No Status: Chronic Code(s): I10 - ESSENTIAL (PRIMARY) HYPERTENSION (6) CAD (coronary artery disease) Current Visit: No Status: Chronic Assessment & Plan: no angina and neg troponins ER Code(s): I25.10 - ATHSCL HEART DISEASE OF [place] CORONARY ARTERY W/O ANG PCTRS
[2021-09-15] MEDS ORDERED: Sodium Chloride 0.9% 1000 ML 1,000 ML ONE (19:54)
[2021-09-15] MEDS: TYLENOL 325 MG PO PRN (20:59)
[2021-09-15] MEDS: Sodium Chloride 0.9% 1000 ML 1,000 ML IV SCH (21:00)
[2021-09-15] MEDS ORDERED: Ativan 0.5 MG PO PRN (21:06)
[2021-09-15] MEDS ORDERED: Ventolin Hfa MDI IH SCH (22:00)
[2021-09-15] MEDS ORDERED: ROCEPHIN 1 Gm-D5w 50 ml Bag** 1 G/50 ML IVPB IV SCH (22:00)
[2021-09-15] MEDS: Zocor 10MG PO SCH (22:34)
[2021-09-16 00:49] LABS: Absolute Neutrophil Ct (ANC) 12.34 x10^3/uL (1.4-6.9); Basophil (Absolute #) 0.04 x10^3/uL (0-0.4); Eosinophil (Absolute #) 0 x10^3/uL (0-0.5); Hematocrit 34.7 % (35-47); Hemoglobin 11.6 g/dL (12.0-16.0); Lymphocyte (Absolute #) 0.76 x10^3/uL (1.0-4.6); Lymphocytes % 5.4 % (24.0-44.0); Mean Cell Volume 93.8 fL (78-100); Mean Corpuscular Hemoglobin 31.4 pg (26-32); Mean Corpuscular Hgb Concent. 33.4 g/dL (32-36); Mean Platelet Volume 11.1 fL (7.5-11.0); Monocyte (Absolute #) 0.84 x10^3/uL (0.0-1.3); Neutrophil % 87.9 % (36.0-66.0); Platelet Count 243 x10^3/uL (150-450); Red Cell Distribution Width 13.3 % (11.5-14.0)
[2021-09-16 00:54] LABS: ALBUMIN 2.5 g/dL (3.5-5.0); ALKALINE PHOSPHATASE 210 U/L (38-126); AMYLASE 44 U/L (30-110); ANION GAP 10.8 MEQ/L (5-15); BLOOD UREA NITROGEN 14 mg/dL (7-17); CHLORIDE 101 mmol/L (98-107); Calcium 8.2 mg/dL (8.4-10.2); Carbon Dioxide 24 mmol/L (22-30); Creatinine 1 0.67 mg/dL (0.52-1.04); Direct Bilirubin 0.8 mg/dL (0.0-0.4); EST GLOMERULAR FILTRATION RATE > 60.0 ML/MIN; Glucose 135 mg/dL (74-106); LIPASE 76 U/L (23-300); SGOT/AST 51 U/L (14-36); SGPT/ALT 47 U/L (0-35); SODIUM 132 mmol/L (137-145); Total Protein 5.1 g/dL (6.3-8.2)
[2021-09-16] MEDS ORDERED: Sodium Chloride 0.9% 1000 ML 1,000 ML ONE (05:17)
[2021-09-16] MEDS: Sodium Chloride 0.9% 1000 ML 1,000 ML IV SCH (05:21)
[2021-09-16] MEDS: TYLENOL 325 MG PO PRN (05:21)
[2021-09-16] MEDS: Sodium Chloride 0.9% W/ 20 mEq KCl/LITER 1,000 ML IV SCH ×2 (06:12→15:42)
[2021-09-16] MEDS: VENTOLIN COMMON CANISTER IH SCH ×3 (07:36→18:55)
[2021-09-16] MEDS ORDERED: Klor Con PO ONE (09:00)
[2021-09-16] MEDS ORDERED: Klor Con PO SCH (09:00)
[2021-09-16] MEDS: Paxil 20 MG PO SCH (09:02)
[2021-09-16] MEDS: Ecotrin 325 MG PO SCH (09:02)
[2021-09-16] MEDS: Zestril 5 MG PO SCH (09:03)
[2021-09-16] MEDS: Zofran 4 MG/2 ML VIAL IV PRN ×3 (11:12→21:51)
[2021-09-16] MEDS: MORPHINE SULFATE 2 MG INJ IV PRN ×3 (12:13→21:51)
[2021-09-16] MEDS: ROCEPHIN 1 Gm-D5w 50 ml Bag** 1 G/50 ML IVPB IV SCH (21:52)
[2021-09-16] MEDS: Zocor 10MG PO SCH (22:01)
[2021-09-17] MEDS: TYLENOL 325 MG PO PRN ×3 (02:28→12:52)
[2021-09-17] MEDS: Sodium Chloride 0.9% W/ 20 mEq KCl/LITER 1,000 ML IV SCH ×2 (02:34→21:05)
[2021-09-17 05:10] LABS: Absolute Neutrophil Ct (ANC) 10.81 x10^3/uL (1.4-6.9); Basophil (Absolute #) 0.05 x10^3/uL (0-0.4); Eosinophil % 0.2 % (0.00-5.0); Eosinophil (Absolute #) 0.03 x10^3/uL (0-0.5); Hemoglobin 11.1 g/dL (12.0-16.0); Lymphocyte (Absolute #) 0.83 x10^3/uL (1.0-4.6); Lymphocytes % 6.6 % (24.0-44.0); Mean Cell Volume 95.5 fL (78-100); Mean Corpuscular Hemoglobin 31.2 pg (26-32); Mean Corpuscular Hgb Concent. 32.6 g/dL (32-36); Mean Platelet Volume 10.2 fL (7.5-11.0); Monocytes % 6.3 % (0.0-12.0); Neutrophil % 85.4 % (36.0-66.0); Platelet Count 232 x10^3/uL (150-450); Red Blood Count 3.56 x10^6/uL (4.1-5.4); White Blood Count 12.7 x10^3/uL (4.0-10.5)
[2021-09-17 05:42] LABS: ALBUMIN 2.5 g/dL (3.5-5.0); ALKALINE PHOSPHATASE 216 U/L (38-126); ANION GAP 11.6 MEQ/L (5-15); BLOOD UREA NITROGEN 15 mg/dL (7-17); CHLORIDE 105 mmol/L (98-107); Calcium 7.9 mg/dL (8.4-10.2); Carbon Dioxide 22 mmol/L (22-30); EST GLOMERULAR FILTRATION RATE > 60.0 ML/MIN; Glucose 104 mg/dL (74-106); SGOT/AST 48 U/L (14-36); SGPT/ALT 41 U/L (0-35); SODIUM 135 mmol/L (137-145); Total Protein 5.5 g/dL (6.3-8.2)
[2021-09-17 05:48] LABS: Potassium 4.3 mmol/L (3.5-5.1)
[2021-09-17] MEDS: VENTOLIN COMMON CANISTER IH SCH ×3 (07:32→19:25)
[2021-09-17] MEDS: Paxil 20 MG PO SCH (08:03)
[2021-09-17] MEDS: Zestril 5 MG PO SCH (08:03)
[2021-09-17] MEDS: Ecotrin 325 MG PO SCH (08:03)
[2021-09-17] MEDS ORDERED: HYDROCODONE-ACETAMIN 10-325 MG PO PRN (08:08)
[2021-09-17] MEDS: Hydromorphone 1 mg/ml Injection IV PRN ×2 (08:31→12:53)
--- NOTE | 2021-09-17 09:58 | XRAY ---
Indication: Short of breath and weakness. Comparison: September 07, 2021. PA/lateral chest demonstrates new diffuse right lung and left lower lobe airspace disease with small bibasilar effusions. Heart not enlarged.
[2021-09-17] MEDS ORDERED: PATIENT OWN MEDICATION PO SCH (10:00)
[2021-09-17] MEDS: Zofran 4 MG/2 ML VIAL IV PRN ×2 (10:10→21:11)
[2021-09-17] MEDS ORDERED: Phenergan 25 MG INJ ONE (10:17)
[2021-09-17] MEDS ORDERED: Phenergan 25 MG INJ IM ONE (10:20)
[2021-09-17] MEDS ORDERED: Miscellaneous Medication Order MC ONE (10:24)
[2021-09-17 10:38] LABS: INFLUENZA A NEGATIVE (NEGATIVE); INFLUENZA B NEGATIVE (NEGATIVE); RESPIRATORY SYNCTIAL VIRUS NEGATIVE (Negative); SARS-CoV-2 Xpert Express NEGATIVE (NEGATIVE)
[2021-09-17] MEDS ORDERED: Lasix 20 MG/2 ML IV ONE (17:00)
[2021-09-17 17:44] LABS: Appearance CLEAR (CLEAR); Bilirubin MODERATE (NEGATIVE); Dipstick done @ ? MAIN LAB; Glucose 100 mg/dL (NEGATIVE); Ketones MODERATE-40 (NEGATIVE); Nitrite NEGATIVE (NEGATIVE); Ph 5.5 (5-6); Protein,Urine Dip 30 (Negative); RBC TRACE-INTACT Ery/ul (0-5); Specific Gravity >=1.030 (1.005-1.025); Urobilinogen >=8.0 mg/dL (0-1)
[2021-09-17 18:16] LABS: Epithelial Cells RARE /HPF (FEW); Mucus SLIGHT /HPF (NEGATIVE)
[2021-09-17 18:30] LABS: Urine Cultured Indicated? YES
[2021-09-17] MEDS: Zocor 10MG PO SCH ×2 (21:05→21:46)
[2021-09-17] MEDS: ROCEPHIN 1 Gm-D5w 50 ml Bag** 1 G/50 ML IVPB IV SCH (21:05)
[2021-09-17] MEDS: Zithromax 500 MG/ 250 ML NaCl Premix 500 MG/250 ML IVPB IV SCH (21:45)
[2021-09-18] MEDS: Zofran 4 MG/2 ML VIAL IV PRN ×2 (01:20→09:25)
[2021-09-18 04:41] LABS: Absolute Neutrophil Ct (ANC) 11.53 x10^3/uL (1.4-6.9); Basophil (Absolute #) 0.03 x10^3/uL (0-0.4); Eosinophil % 0.1 % (0.00-5.0); Eosinophil (Absolute #) 0.01 x10^3/uL (0-0.5); Hemoglobin 11.4 g/dL (12.0-16.0); Lymphocyte (Absolute #) 0.66 x10^3/uL (1.0-4.6); Lymphocytes % 5.2 % (24.0-44.0); Mean Cell Volume 92.2 fL (78-100); Mean Corpuscular Hemoglobin 31.8 pg (26-32); Mean Corpuscular Hgb Concent. 34.5 g/dL (32-36); Mean Platelet Volume 9.9 fL (7.5-11.0); Monocyte (Absolute #) 0.44 x10^3/uL (0.0-1.3); Monocytes % 3.4 % (0.0-12.0); Platelet Count 289 x10^3/uL (150-450); Red Blood Count 3.58 x10^6/uL (4.1-5.4); Red Cell Distribution Width 14.2 % (11.5-14.0); White Blood Count 12.8 x10^3/uL (4.0-10.5)
[2021-09-18 05:08] LABS: ALBUMIN 2.6 g/dL (3.5-5.0); ALKALINE PHOSPHATASE 257 U/L (38-126); ANION GAP 11.5 MEQ/L (5-15); BLOOD UREA NITROGEN 15 mg/dL (7-17); CHLORIDE 102 mmol/L (98-107); Calcium 8.5 mg/dL (8.4-10.2); Carbon Dioxide 25 mmol/L (22-30); Creatinine 1 0.57 mg/dL (0.52-1.04); EST GLOMERULAR FILTRATION RATE > 60.0 ML/MIN; Glucose 122 mg/dL (74-106); Potassium 3.6 mmol/L (3.5-5.1); SGOT/AST 45 U/L (14-36); SGPT/ALT 39 U/L (0-35); SODIUM 135 mmol/L (137-145); Total Protein 5.7 g/dL (6.3-8.2)
[2021-09-18] MEDS: VENTOLIN COMMON CANISTER IH SCH ×2 (06:50→12:45)
--- NOTE | 2021-09-18 07:44 | CONS ---
CONSULT DATE: 09/16/2021 REASON FOR CONSULT: Nausea and vomiting. HISTORY: The patient was normal until ten days ago. She is elderly, 71. Ten days ago she was so weak and exhausted that she just could not hardly move and had to be drug out of the house basically to the emergency room. She went back home. She came back a day or two later. At this time she had vertigo symptoms. She came back a day or two later with nausea and vomiting. Her work up to date has demonstrated a left pyelonephritis by CT scan. She had an initially slightly elevated white count of 14,000 and now is down to 12,000. She is feeling better but she is still nauseated. She is really not having abdominal pain or discomfort. She has been eating just light meals here in the hospital and she is still nauseated. She had an ultrasound of the gallbladder that showed a slightly contracted gallbladder but otherwise satisfactory. Her liver enzymes had just barely elevation with just a little bit more of the alkaline phosphatase which is almost doubled. SGOT and SGPT were just barely elevated. She did have a slightly large spleen. She has pretty much had a viral panel done. She has not had a mono test which could be implicated possibly. Her abdomen is moderately obese and is nontender. There are no peritoneal signs. Her family is present. On questioning, she has never had an EGD. She has never had a colonoscopy. She has had the of two family members here just recently and she has been under a lot of stress. IMPRESSION AND PLAN: She has persistent nausea and vomiting. It is possible that she has severe dyskinesia. If her HIDA scan returns normal, I would suggest that we do an EGD for evaluation of possible ulcer disease. She is certainly requiring colonoscopy either now or later as she has not had the 50 year old screening colonoscopy to date. We will check back with her tomorrow shortly after HIDA scan to see what route we are going in.
[2021-09-18] MEDS ORDERED: Zofran 4 MG/2 ML VIAL ONE (09:22)
[2021-09-18] MEDS: Hydromorphone 1 mg/ml Injection IV PRN ×2 (10:43→13:53)
[2021-09-18] MEDS: TYLENOL 325 MG PO PRN (10:44)
[2021-09-18] MEDS: Paxil 20 MG PO SCH (11:23)
[2021-09-18] MEDS: Zestril 5 MG PO SCH (11:24)
[2021-09-18] MEDS: Ecotrin 325 MG PO SCH (11:24)
[2021-09-18] MEDS: Zithromax 500 MG/ 250 ML NaCl Premix 500 MG/250 ML IVPB IV SCH (11:27)
--- NOTE | 2021-09-18 11:38 | XRAY ---
Indication: Right upper quadrant abdominal pain. Nausea and vomiting. Borderline gallbladder wall thickening on recent sonogram. Comparison: None Patient received 5.9 mCi technetium 99 Choletec. Immediate anterior planar imaging was performed for 60 minutes. Normal hepatic activity on the first image. Normal biliary and biliary to bowel activity within 20 minutes. Normal gallbladder activity within 40 minutes. Patient received 2.0 g of IV CCK slowly. Ejection fraction calculated 91%, normal. Impression: Normal HIDA scan. Normal ejection fraction.
--- NOTE | 2021-09-18 13:00 | XRAY ---
Indication: Pyelonephritis. Two-dimensional renal sonogram performed. Comparison: None Both kidneys normal in reniform shape with normal color perfusion. Right kidney measures 10.8 x 6.2 x 5.3 cm and the left measures 10.9 x 6.6 x 5.0 cm. No focal solid/cystic renal mass or hydronephrosis. Cortical medullary differentiation preserved without cortical thinning. Urinary bladder minimally distended up to 66 cc. Patient voided prior to exam. No focal bladder abnormality. Ureteral jets not seen within the allotted exam time. Impression: Negative renal sonogram.
[2021-09-18] MEDS: Compazine 10 MG/2 ML IV PRN ×2 (13:52→20:47)
[2021-09-18] MEDS ORDERED: Golytely Solution 4000 ML PO ONE (14:00)
--- NOTE | 2021-09-18 17:16 | PCM.NOTE ---
Date and Time: 09/18/21 1705 Subjective Assessment: Patient is starting to feel better in general but still nauseated,not eating well. WBC and liver enzymes still elevated. Hida scan was negative. Blood and urine cultures are negative. BNP was elevated ,still crackles right base per nursing. IV fluids adressed. General Surgery consult appreciated. Plan for EGD and colonoscopy tomorrow but is not tolerating the Go lightly but is trying. Dr Elizabeth advise to give enema x2 in the AM to prep. Objective Exam General Appearance: mild distress (trying to drink the G[place]) Neurologic Exam: alert, oriented x 3, cooperative, normal mood/affect Skin Exam: normal color, warm, dry Respiratory Exam: crackles/rales (righr base), wheezing (scattered) Gastrointestinal/Abdomen Exam: soft, normal bowel sounds, tenderness (per iumbilical) Extremity Exam: other (no pitting edema) Back Exam: normal inspection OBJECTIVE DATA Vital Signs: Vital Signs - 24 hr Temp Pulse Resp BP BP Pulse Ox 09/18/21 16:00 97.1 F 73 19 139/63 93 L 09/18/21 12:47 71 18 91 L 09/18/21 12:00 97.5 F 72 17 123/60 90 L 09/18/21 08:00 98.7 F 84 15 124/56 90 L 09/18/21 06:52 80 20 91 L 09/18/21 04:00 99.2 F 86 133/60 90 L 09/17/21 23:25 97.7 F 99 H 20 126/76 125/62 92 L 09/17/21 20:22 97.9 F 82 16 125/62 94 L 09/17/21 19:27 83 18 94 L Pain Assessment - Last Documented Pain Intensity 3 Pain Scale Used 0-10 Pain Scale Intake and Output: Intake & Output 09/16/21 09/17/21 09/18/21 09/19/21 11:59 11:59 11:59 11:59 Intake Total 1108 2978 1147 25 Output Total 746 336 8579 100 Balance 358 2678 -553 -75 Weight 100.5 kg Lab Results: Lab Results-Last 24 Hours 09/17/21 09/18/21 09/18/21 Range/Units 17:25 04:25 04:25 WBC 12.8 H (4.0-10.5) x10^3/uL RBC 3.58 L (4.1-5.4) x10^6/uL Hgb 11.4 L (12.0-16.0) g/dL Hct 33.0 L (35-47) % MCV 92.2 (78-100) fL MCH 31.8 (26-32) pg MCHC 34.5 (32-36) g/dL RDW 14.2 H (11.5-14.0) % Plt Count 289 (150-450) x10^3/uL MPV 9.9 (7.5-11.0) fL Gran % 90.0 H (36.0-66.0) % Immature Gran % (Auto) 1.1 H (0.00-0.4) % Nucleat RBC Rel Count 0.0 (0.00-0.1) % Eos # (Auto) 0.01 (0-0.5) x10^3/uL Immature Gran # (Auto) 0.14 H (0.00-0.03) x10^3u/L Absolute Lymphs (auto) 0.66 L (1.0-4.6) x10^3/uL Absolute Monos (auto) 0.44 (0.0-1.3) x10^3/uL Absolute Nucleated RBC 0.00 (0.00-0.01) x10^3u/L Lymphocytes % 5.2 L (24.0-44.0) % Monocytes % 3.4 (0.0-12.0) % Eosinophils % 0.1 (0.00-5.0) % Basophils % 0.2 (0.0-0.4) % Absolute Granulocytes 11.53 H (1.4-6.9) x10^3/uL Basophils # 0.03 (0-0.4) x10^3/uL Sodium 135 L (137-145) mmol/L Potassium 3.6 (3.5-5.1) mmol/L Chloride 102 (98-107) mmol/L Carbon Dioxide 25 (22-30) mmol/L Anion Gap 11.5 (5-15) MEQ/L BUN 15 (7-17) mg/dL Creatinine 0.57 (0.52-1.04) mg/dL Estimated GFR > 60.0 ML/MIN Glucose 122 H (74-106) mg/dL Calcium 8.5 (8.4-10.2) mg/dL Total Bilirubin 1.00 (0.2-1.3) mg/dL AST 45 H (14-36) U/L ALT 39 H (0-35) U/L Alkaline Phosphatase 257 H (38-126) U/L NT-Pro-B Natriuret Pep (0-900) pg/mL Serum Total Protein 5.7 L (6.3-8.2) g/dL Albumin 2.6 L (3.5-5.0) g/dL Urinalys Dipstick Clnc MAIN LAB Urine Color HARJIT (YELLOW) Urine Appearance CLEAR (CLEAR) Urine pH 5.5 (5-6) Ur Specific [place] >=1.030 (1.005-1.025) POC Urine Protein Conf 30 (Negative) Urine Ketones MODERATE-40 (NEGATIVE) Urine Nitrite NEGATIVE (NEGATIVE) Urine Bilirubin MODERATE (NEGATIVE) Urine Urobilinogen >=8.0 (0-1) mg/dL Urine Leukocytes NEGATIVE (NEGATIVE) Urine WBC (Auto) 3-5 (0-5) /HPF Urine RBC (Auto) 3-5 (0-2) /HPF U Epithel Cells (Auto) RARE (FEW) /HPF Urine Bacteria (Auto) NONE (NEGATIVE) /HPF Urine RBC TRACE-INTACT (0-5) Jimbo/ul Urine Mucus (Auto) SLIGHT (NEGATIVE) /HPF Ur Culture Indicated? YES Urine Glucose 100 (NEGATIVE) mg/dL 09/18/21 Range/Units 04:25 WBC (4.0-10.5) x10^3/uL RBC (4.1-5.4) x10^6/uL Hgb (12.0-16.0) g/dL Hct (35-47) % MCV (78-100) fL MCH (26-32) pg MCHC (32-36) g/dL RDW (11.5-14.0) % Plt Count (150-450) x10^3/uL MPV (7.5-11.0) fL Gran % (36.0-66.0) % Immature Gran % (Auto) (0.00-0.4) % Nucleat RBC Rel Count (0.00-0.1) % Eos # (Auto) (0-0.5) x10^3/uL Immature Gran # (Auto) (0.00-0.03) x10^3u/L Absolute Lymphs (auto) (1.0-4.6) x10^3/uL Absolute Monos (auto) (0.0-1.3) x10^3/uL Absolute Nucleated RBC (0.00-0.01) x10^3u/L Lymphocytes % (24.0-44.0) % Monocytes % (0.0-12.0) % Eosinophils % (0.00-5.0) % Basophils % (0.0-0.4) % Absolute Granulocytes (1.4-6.9) x10^3/uL Basophils # (0-0.4) x10^3/uL Sodium (137-145) mmol/L Potassium (3.5-5.1) mmol/L Chloride (98-107) mmol/L Carbon Dioxide (22-30) mmol/L Anion Gap (5-15) MEQ/L BUN (7-17) mg/dL Creatinine (0.52-1.04) mg/dL Estimated GFR ML/MIN Glucose (74-106) mg/dL Calcium (8.4-10.2) mg/dL Total Bilirubin (0.2-1.3) mg/dL AST (14-36) U/L ALT (0-35) U/L Alkaline Phosphatase (38-126) U/L NT-Pro-B Natriuret Pep 2040 H (0-900) pg/mL Serum Total Protein (6.3-8.2) g/dL Albumin (3.5-5.0) g/dL Urinalys Dipstick Clnc Urine Color (YELLOW) Urine Appearance (CLEAR) Urine pH (5-6) Ur Specific [place] (1.005-1.025) POC Urine Protein Conf (Negative) Urine Ketones (NEGATIVE) Urine Nitrite (NEGATIVE) Urine Bilirubin (NEGATIVE) Urine Urobilinogen (0-1) mg/dL Urine Leukocytes (NEGATIVE) Urine WBC (Auto) (0-5) /HPF Urine RBC (Auto) (0-2) /HPF U Epithel Cells (Auto) (FEW) /HPF Urine Bacteria (Auto) (NEGATIVE) /HPF Urine RBC (0-5) Jimbo/ul Urine Mucus (Auto) (NEGATIVE) /HPF Ur Culture Indicated? Urine Glucose (NEGATIVE) mg/dL Radiology Exams: Radiology Procedures Category Date Time Status CHEST 2 VIEWS (PA AND LAT) Routine Exams 09/17/21 08:52 Completed ECHO W/2D AND DOPPLER [US] Routine Exams 09/18/21 12:46 Taken HIDA-GALL BLADDER [NUCMED] Routine Exams 09/18/21 09:30 Completed KIDNEY [US] Routine Exams 09/18/21 12:45 Completed Multi-Disciplinary Progress Notes: Multi-Disciplinary Progress Notes 09/18/21 09:00 Case Management Note by Lisa Oneal PATIENT STILL ACUTELY ILL-GETTING HIDA SCAN TODAY. PATIENT WAS INDEPENDENT AT HOME PRIOR TO ADMISSION. PATIENT MAY NEED HHC DEPENDING COURSE OF STAY. PATIENT CURRENTLY ON 3L/NC. [place] OXYGEN ORDER FORM PLACED ON CHART IN CASE NEEDED FOR DC OVER WEEKEND Initialized on 09/18/21 09:00 - END OF NOTE Assessment/Plan (1) Pyelonephritis Current Visit: Yes Status: Acute Assessment & Plan: antibiotic changed to Unasyn Code(s): N12 - TUBULO-INTERSTITIAL NEPHRITIS, NOT SPCF ACUTE OR CHRONIC (2) Fever Current Visit: Yes Status: Resolved Code(s): R50.9 - FEVER, UNSPECIFIED (3) Nausea & vomiting Current Visit: Yes Status: Acute Assessment & Plan: nausea but no more emesis Code(s): R11.2 - NAUSEA WITH VOMITING, UNSPECIFIED (4) Elevated liver enzymes Current Visit: Yes Status: Acute Code(s): R74.8 - ABNORMAL LEVELS OF OTHER SERUM ENZYMES (5) HTN (hypertension) Current Visit: No Status: Chronic Code(s): I10 - ESSENTIAL (PRIMARY) HYPERTENSION
[2021-09-18] MEDS ORDERED: K-LYTE PO ONE (18:03)
[2021-09-18] MEDS: LASIX 20 MG PO SCH (18:27)
[2021-09-18] MEDS ORDERED: PROVENTIL Solution 2.5 MG/0.5 ML IH ONE (18:29)
[2021-09-18] MEDS: PROVENTIL 2.5 MG/3 ML NEB IH SCH (18:33)
[2021-09-18] MEDS: Zocor 10MG PO SCH (20:47)
[2021-09-19] MEDS ORDERED: PIPERACILLIN/TAZOBACTAM IV ONE ×2 (00:16→05:18)
[2021-09-19] MEDS ORDERED: Sodium Chloride 100ML MINI-BAG PLUS 100 ML IV ONE ×2 (00:17→05:19)
[2021-09-19] MEDS: Lactated Ringers 1,000 ML IV SCH ×2 (00:20→19:16)
[2021-09-19] MEDS: PIPERACILLIN/TAZOBACTAM 3.375 GM in Sodium Chloride 100ML MINI-BAG PLUS 100 ML IV SCH ×5 (00:22→16:15)
[2021-09-19] MEDS: PROVENTIL 2.5 MG/3 ML NEB IH SCH ×5 (01:05→18:45)
[2021-09-19] MEDS ORDERED: PROVENTIL Solution 2.5 MG/0.5 ML IH ONE (01:05)
[2021-09-19 05:14] LABS: Absolute Neutrophil Ct (ANC) 9.85 x10^3/uL (1.4-6.9); Basophil (Absolute #) 0.05 x10^3/uL (0-0.4); Eosinophil % 0.8 % (0.00-5.0); Eosinophil (Absolute #) 0.09 x10^3/uL (0-0.5); Hemoglobin 10.3 g/dL (12.0-16.0); Lymphocyte (Absolute #) 0.96 x10^3/uL (1.0-4.6); Lymphocytes % 8.2 % (24.0-44.0); Mean Cell Volume 94.5 fL (78-100); Mean Corpuscular Hemoglobin 31.4 pg (26-32); Mean Corpuscular Hgb Concent. 33.2 g/dL (32-36); Mean Platelet Volume 9.7 fL (7.5-11.0); Monocyte (Absolute #) 0.64 x10^3/uL (0.0-1.3); Monocytes % 5.4 % (0.0-12.0); Neutrophil % 83.8 % (36.0-66.0); Platelet Count 327 x10^3/uL (150-450); Red Blood Count 3.28 x10^6/uL (4.1-5.4); Red Cell Distribution Width 14.2 % (11.5-14.0); White Blood Count 11.8 x10^3/uL (4.0-10.5)
[2021-09-19 06:02] LABS: ALBUMIN 2.4 g/dL (3.5-5.0); ALKALINE PHOSPHATASE 266 U/L (38-126); ANION GAP 9.2 MEQ/L (5-15); BLOOD UREA NITROGEN 17 mg/dL (7-17); CHLORIDE 103 mmol/L (98-107); Calcium 8.3 mg/dL (8.4-10.2); Carbon Dioxide 27 mmol/L (22-30); Creatinine 1 0.65 mg/dL (0.52-1.04); EST GLOMERULAR FILTRATION RATE > 60.0 ML/MIN; Glucose 102 mg/dL (74-106); NT PRO BNP 2020 pg/mL (0-900); Potassium 3.2 mmol/L (3.5-5.1); SGOT/AST 61 U/L (14-36); SGPT/ALT 43 U/L (0-35); SODIUM 136 mmol/L (137-145); Total Protein 5.2 g/dL (6.3-8.2)
[2021-09-19] MEDS ORDERED: Xylocaine-Mpf 2% 5 Ml Vial ONE (09:53)
[2021-09-19] MEDS ORDERED: DIPRIVAN 200 MG/20 ML IV ONE (09:53)
[2021-09-19] MEDS ORDERED: Lactated Ringers 1,000 ML IV ONE (10:02)
[2021-09-19] MEDS ORDERED: Proair Hfa MDI IH ONE (10:41)
--- NOTE | 2021-09-19 11:22 | PCM.NOTE ---
Date and Time: 09/19/21 1122 Subjective Assessment: Patient had EGD and Colonoscopy this morning. GERD, Healing ulcers which explains the chronic nausea,polyp biopsied,diveticular dz. Diet advanced. Objective Exam General Appearance: no apparent distress (is eating cottage chese) Neurologic Exam: alert, oriented x 3, cooperative, normal mood/affect Skin Exam: normal color, warm, dry Respiratory Exam: normal breath sounds (no wheezing or crackles today) Cardiovascular Exam: regular rate/rhythm Gastrointestinal/Abdomen Exam: soft OBJECTIVE DATA Vital Signs: Vital Signs - 24 hr Temp Pulse Resp BP Pulse Ox 09/19/21 10:41 99 H 24 94 L 09/19/21 09:32 97.3 F 78 18 126/62 96 09/19/21 07:11 97.3 F 78 18 126/62 90 L 09/19/21 06:45 77 20 90 L 09/19/21 04:00 97.7 F 84 19 123/56 91 L 09/19/21 01:31 83 18 92 L 09/18/21 23:33 99.4 F 91 H 22 108/55 89 L 09/18/21 19:10 97.3 F 82 20 147/65 96 09/18/21 18:37 82 18 96 09/18/21 16:00 97.1 F 73 19 139/63 93 L 09/18/21 12:47 71 18 91 L 09/18/21 12:00 97.5 F 72 17 123/60 90 L Pain Assessment - Last Documented Pain Intensity 0 Pain Scale Used 0-10 [facility] Scale,[facility] Intake and Output: Intake & Output 09/16/21 09/17/21 09/18/21 09/19/21 11:59 11:59 11:59 11:59 Intake Total 1108 2978 1147 706 Output Total 670 000 3551 950 Balance 358 0668 -863 -700 Weight 100.5 kg 100.5 kg Lab Results: Lab Results-Last 24 Hours 09/19/21 09/19/21 Range/Units 04:40 04:40 WBC 11.8 H (4.0-10.5) x10^3/uL RBC 3.28 L (4.1-5.4) x10^6/uL Hgb 10.3 L (12.0-16.0) g/dL Hct 31.0 L (35-47) % MCV 94.5 (78-100) fL MCH 31.4 (26-32) pg MCHC 33.2 (32-36) g/dL RDW 14.2 H (11.5-14.0) % Plt Count 327 (150-450) x10^3/uL MPV 9.7 (7.5-11.0) fL Gran % 83.8 H (36.0-66.0) % Immature Gran % (Auto) 1.4 H (0.00-0.4) % Nucleat RBC Rel Count 0.0 (0.00-0.1) % Eos # (Auto) 0.09 (0-0.5) x10^3/uL Immature Gran # (Auto) 0.16 H (0.00-0.03) x10^3u/L Absolute Lymphs (auto) 0.96 L (1.0-4.6) x10^3/uL Absolute Monos (auto) 0.64 (0.0-1.3) x10^3/uL Absolute Nucleated RBC 0.00 (0.00-0.01) x10^3u/L Lymphocytes % 8.2 L (24.0-44.0) % Monocytes % 5.4 (0.0-12.0) % Eosinophils % 0.8 (0.00-5.0) % Basophils % 0.4 (0.0-0.4) % Absolute Granulocytes 9.85 H (1.4-6.9) x10^3/uL Basophils # 0.05 (0-0.4) x10^3/uL Sodium 136 L (137-145) mmol/L Potassium 3.2 L (3.5-5.1) mmol/L Chloride 103 (98-107) mmol/L Carbon Dioxide 27 (22-30) mmol/L Anion Gap 9.2 (5-15) MEQ/L BUN 17 (7-17) mg/dL Creatinine 0.65 (0.52-1.04) mg/dL Estimated GFR > 60.0 ML/MIN Glucose 102 (74-106) mg/dL Calcium 8.3 L (8.4-10.2) mg/dL Total Bilirubin 0.90 (0.2-1.3) mg/dL AST 61 H (14-36) U/L ALT 43 H (0-35) U/L Alkaline Phosphatase 266 H (38-126) U/L NT-Pro-B Natriuret Pep 2020 H (0-900) pg/mL Serum Total Protein 5.2 L (6.3-8.2) g/dL Albumin 2.4 L (3.5-5.0) g/dL Radiology Exams: Radiology Procedures Category Date Time Status ECHO W/2D AND DOPPLER [US] Routine Exams 09/18/21 12:46 Taken HIDA-GALL BLADDER [NUCMED] Routine Exams 09/18/21 09:30 Completed KIDNEY [US] Routine Exams 09/18/21 12:45 Completed Assessment/Plan (1) Pyelonephritis Current Visit: Yes Status: Acute Code(s): N12 - TUBULO-INTERSTITIAL NEPHRITIS, NOT SPCF ACUTE OR CHRONIC (2) Fever Current Visit: Yes Status: Resolved Code(s): R50.9 - FEVER, UNSPECIFIED (3) Nausea & vomiting Current Visit: Yes Status: Acute Qualifiers: Vomiting type: associated with bulimia nervosa Qualified Code(s): F50.2 - Bulimia nervosa Assessment & Plan: improved ,EGD showed healing ulcers,GERD Code(s): R11.2 - NAUSEA WITH VOMITING, UNSPECIFIED (4) Elevated liver enzymes Current Visit: Yes Status: Acute Code(s): R74.8 - ABNORMAL LEVELS OF OTHER SERUM ENZYMES (5) HTN (hypertension) Current Visit: No Status: Chronic Code(s): I10 - ESSENTIAL (PRIMARY) HYPERTENSION (6) Wheezing Current Visit: Yes Status: Resolved Assessment & Plan: neb treatments and Lasix Code(s): R06.2 - WHEEZING (7) PUD (peptic ulcer disease) Current Visit: Yes Status: Acute Assessment & Plan: per todays EGD - healing ulcers Code(s): K27.9 - PEPTIC ULC, SITE UNSP, UNSP AC OR CHR, W/O HEMOR OR PERF
[2021-09-19] MEDS: Ecotrin 325 MG PO SCH (11:33)
[2021-09-19] MEDS: LASIX 20 MG PO SCH (11:33)
[2021-09-19] MEDS: Paxil 20 MG PO SCH (11:33)
[2021-09-19] MEDS: Zithromax 500 MG/ 250 ML NaCl Premix 500 MG/250 ML IVPB IV SCH (11:34)
[2021-09-19] MEDS: Zestril 5 MG PO SCH (11:34)
[2021-09-19] MEDS ORDERED: Klor Con PO ONE (15:17)
[2021-09-19] MEDS: Sodium Chloride 0.9% W/ 20 mEq KCl/LITER 1,000 ML IV SCH ×2 (19:17)
[2021-09-19] MEDS: Zocor 10MG PO SCH (21:55)
[2021-09-20] MEDS: PROVENTIL 2.5 MG/3 ML NEB IH SCH ×3 (00:55→13:45)
[2021-09-20] MEDS: PIPERACILLIN/TAZOBACTAM 3.375 GM in Sodium Chloride 100ML MINI-BAG PLUS 100 ML IV SCH ×4 (04:49→12:01)
[2021-09-20 05:37] LABS: Absolute Neutrophil Ct (ANC) 8.22 x10^3/uL (1.4-6.9); Basophil (Absolute #) 0.06 x10^3/uL (0-0.4); Eosinophil % 2.4 % (0.00-5.0); Eosinophil (Absolute #) 0.25 x10^3/uL (0-0.5); Hematocrit 32.1 % (35-47); Hemoglobin 10.4 g/dL (12.0-16.0); Lymphocyte (Absolute #) 1.15 x10^3/uL (1.0-4.6); Mean Cell Volume 94.4 fL (78-100); Mean Corpuscular Hemoglobin 30.6 pg (26-32); Mean Corpuscular Hgb Concent. 32.4 g/dL (32-36); Mean Platelet Volume 9.8 fL (7.5-11.0); Monocytes % 5.7 % (0.0-12.0); Neutrophil % 78.6 % (36.0-66.0); Platelet Count 353 x10^3/uL (150-450); Red Cell Distribution Width 14.5 % (11.5-14.0); White Blood Count 10.5 x10^3/uL (4.0-10.5)
[2021-09-20 05:54] LABS: ALBUMIN 2.4 g/dL (3.5-5.0); ALKALINE PHOSPHATASE 298 U/L (38-126); ANION GAP 8.3 MEQ/L (5-15); BLOOD UREA NITROGEN 15 mg/dL (7-17); CHLORIDE 102 mmol/L (98-107); Calcium 8.1 mg/dL (8.4-10.2); Carbon Dioxide 30 mmol/L (22-30); Creatinine 1 0.61 mg/dL (0.52-1.04); EST GLOMERULAR FILTRATION RATE > 60.0 ML/MIN; Glucose 110 mg/dL (74-106); Potassium 3.2 mmol/L (3.5-5.1); SGOT/AST 142 U/L (14-36); SGPT/ALT 90 U/L (0-35); SODIUM 137 mmol/L (137-145); Total Protein 5.1 g/dL (6.3-8.2)
[2021-09-20] MEDS: TYLENOL 325 MG PO PRN (07:49)
[2021-09-20] MEDS: Zithromax 500 MG/ 250 ML NaCl Premix 500 MG/250 ML IVPB IV SCH (07:51)
[2021-09-20 08:19] LABS: NT PRO BNP 1220 pg/mL (0-900)
[2021-09-20] MEDS: Zestril 5 MG PO SCH (09:22)
[2021-09-20] MEDS: Paxil 20 MG PO SCH (09:22)
[2021-09-20] MEDS: Ecotrin 325 MG PO SCH (09:22)
--- NOTE | 2021-09-20 11:38 | PCM.DS ---
Discharge Summary Date of Admission: 09/16/21 08:20 Date of Discharge: 09/20/21 Admitting Physician: FAVIO HUTSON DO Consults: Consults on Case 09/15/21 21:20 Consult Surgery ROUTINE Primary Care Provider: FAVIO HUTSON DO Allergies Allergies No Known Drug Allergies Allergy (Verified 09/11/21 15:48) Hospital Summary - Hospital Course Hospital Course: Patient was admitted after 2 visits to ER with N/V/Lethargy. CT abd/pelvis showed left pyelonephritis. Urine and blood cultures were no growth . Ptn had fever on admission ,was started on IV rocephin. WBC 14,000 on admission now 10,500 after changing atb to Unasyn ,patient clinically improved. Liver enzymes and direct bili were elevated . GBUS and Hida were no stones and normal ejection on Hida scan. Dr Elizabeth performed EGD and Colonoscopy which showed healing peptic ulcers ,diverticulkar dz and a polyp that was biopsied.. Appetite has improved tolerating a bland diet and only mild nausea when empty stomach at this time. BNP was elevated and low dose Lasix given ,rales and wheezing subsided. ECHO results are pending. Will discharge home with good family support, and see me next week. No antibiotic on discharge . - Vitals & Intake/Output Vital Signs: Vital Signs Temperature 96.9 F 09/20/21 07:23 Pulse Rate 81 09/20/21 07:23 Respiratory Rate 19 09/20/21 07:23 Blood Pressure 137/67 09/20/21 07:23 O2 Sat by Pulse Oximetry 93 L 09/20/21 07:23 Intake & Output: Intake & Output 09/17/21 09/18/21 09/19/21 09/20/21 11:59 11:59 11:59 11:59 Intake Total 2978 1147 706 920 Output Total 300 1700 1050 350 Balance 8059 -614 -234 844 Weight 100.5 kg 100.5 kg - Lab Result Diagrams: 09/20/21 04:40 09/20/21 04:40 Lab Results-Last 24 Hrs: Lab Results-Last 24 Hours 09/20/21 09/20/21 Range/Units 04:40 04:40 WBC 10.5 (4.0-10.5) x10^3/uL RBC 3.40 L (4.1-5.4) x10^6/uL Hgb 10.4 L (12.0-16.0) g/dL Hct 32.1 L (35-47) % MCV 94.4 (78-100) fL MCH 30.6 (26-32) pg MCHC 32.4 (32-36) g/dL RDW 14.5 H (11.5-14.0) % Plt Count 353 (150-450) x10^3/uL MPV 9.8 (7.5-11.0) fL Gran % 78.6 H (36.0-66.0) % Immature Gran % (Auto) 1.7 H (0.00-0.4) % Nucleat RBC Rel Count 0.0 (0.00-0.1) % Eos # (Auto) 0.25 (0-0.5) x10^3/uL Immature Gran # (Auto) 0.18 H (0.00-0.03) x10^3u/L Absolute Lymphs (auto) 1.15 (1.0-4.6) x10^3/uL Absolute Monos (auto) 0.60 (0.0-1.3) x10^3/uL Absolute Nucleated RBC 0.00 (0.00-0.01) x10^3u/L Lymphocytes % 11.0 L (24.0-44.0) % Monocytes % 5.7 (0.0-12.0) % Eosinophils % 2.4 (0.00-5.0) % Basophils % 0.6 (0.0-0.4) % Absolute Granulocytes 8.22 H (1.4-6.9) x10^3/uL Basophils # 0.06 (0-0.4) x10^3/uL Sodium 137 (137-145) mmol/L Potassium 3.2 L (3.5-5.1) mmol/L Chloride 102 (98-107) mmol/L Carbon Dioxide 30 (22-30) mmol/L Anion Gap 8.3 (5-15) MEQ/L BUN 15 (7-17) mg/dL Creatinine 0.61 (0.52-1.04) mg/dL Estimated GFR > 60.0 ML/MIN Glucose 110 H (74-106) mg/dL Calcium 8.1 L (8.4-10.2) mg/dL Total Bilirubin 0.70 (0.2-1.3) mg/dL AST 142 H (14-36) U/L ALT 90 H (0-35) U/L Alkaline Phosphatase 298 H (38-126) U/L NT-Pro-B Natriuret Pep 1220 H (0-900) pg/mL Serum Total Protein 5.1 L (6.3-8.2) g/dL Albumin 2.4 L (3.5-5.0) g/dL Micro Results-Entire Visit: Microbiology 09/15/21 11:15 Blood Culture Gram Stain - Final Blood Not Reportable Blood Culture - Final NO GROWTH 09/15/21 11:00 Blood Culture Gram Stain - Final Blood Not Reportable Blood Culture - Final NO GROWTH 09/17/21 17:25 Urine Culture - Final Clean Catch Midstream NO GROWTH - Radiology Exams Ordered Rad Exams-Entire Visit: Radiology Procedures Category Date Time Status ECHO W/2D AND DOPPLER [US] Routine Exams 09/18/21 12:46 Taken KIDNEY [US] Routine Exams 09/18/21 12:45 Completed - Procedures and Test Procedures and Tests throughout Hospitalization: Therapy Orders & Screens 09/16/21 05:16 Oxygen Nasal Cannula 2 lpm Comment: Diagnosis: pyelonephritis Respiratory Therapy Assessment DAILY Comment: Diagnosis: pyelonephritis 09/18/21 04:44 Incentive Spirometry UD Comment: Diagnosis: ACUTE PYELONEPHRITIS, WEAKNESS Discharge Exam General Appearance: no apparent distress Neurologic Exam: alert, oriented x 3, cooperative, normal mood/affect Eye Exam: eyes nml inspection Ears, Nose, Throat Exam: normal ENT inspection Neck Exam: normal inspection Respiratory Exam: diminished breath sounds (bases no wheeze no rales) Cardiovascular Exam: regular rate/rhythm Gastrointestinal/Abdomen Exam: soft, normal bowel sounds, distention (epigastrum -just finished breakfast) Back Exam: normal inspection, other (no CVA tenderness) Extremity Exam: other (trace ankle edema) Final Diagnosis/Problem List - Final Discharge Diagnosis/Problem (1) Pyelonephritis Current Visit: Yes Status: Resolved Assessment & Plan: responded to Unsasyn clinically but urine cult -no growt Code(s): N12 - TUBULO-INTERSTITIAL NEPHRITIS, NOT SPCF ACUTE OR CHRONIC (2) Fever Current Visit: Yes Status: Resolved Code(s): R50.9 - FEVER, UNSPECIFIED (3) Nausea & vomiting Current Visit: Yes Status: Resolved Assessment & Plan: EGD showed healing ulcers Code(s): R11.2 - NAUSEA WITH VOMITING, UNSPECIFIED (4) Elevated liver enzymes Current Visit: Yes Status: Acute Assessment & Plan: GBUS/liver US and HIDA -wnl , will follow enz as outp[atient Code(s): R74.8 - ABNORMAL LEVELS OF OTHER SERUM ENZYMES (5) HTN (hypertension) Current Visit: No Status: Chronic Code(s): I10 - ESSENTIAL (PRIMARY) HYPERTENSION (6) Wheezing Current Visit: Yes Status: Resolved Code(s): R06.2 - WHEEZING (7) PUD (peptic ulcer disease) Current Visit: Yes Status: Acute Assessment & Plan: healing ulcers -continue bland diet and RX. last year. Code(s): K27.9 - PEPTIC ULC, SITE UNSP, UNSP AC OR CHR, W/O HEMOR OR PERF (8) Elevated brain natriuretic peptide (BNP) level Current Visit: Yes Status: Acute Assessment & Plan: improved ,ECHO pending. Code(s): R79.89 - OTHER SPECIFIED ABNORMAL FINDINGS OF BLOOD CHEMISTRY - Discharge Disposition: Home, Self-Care Condition: Stable Prescriptions: New Sucralfate 1 gm [Carafate 1 GM] 1 g PO ACHS #60 tablet Omeprazole 40 mg PO DAILY #30 cap Continue Aspirin EC 325 mg [Ecotrin 325 MG] 325 mg PO DAILY lisinopriL [Lisinopril] 5 mg PO DAILY Cholecalciferol (Vitamin D3) [D3-2000] 2,000 unit PO DAILY Pravastatin Sodium 10 mg PO QHS Meclizine HCl 12.5 mg PO TID Instructions: Peptic Ulcers (DC), Kidney Infection (DC) Follow up with: ARTURO ELIZABETH [ACTIVE STAFF] - 2 weeks FAVIO HUTSON DO [Primary Care Provider] - 1 Week Forms: Discharge Instructions
[2021-09-20 12:44] VITALS: BP 136/71; O2SAT 90
[2021-09-20 13:51] VITALS: PULSE 88
--- NOTE | 2021-09-21 16:57 | OP ---
SURGERY DATE: 09/19/2021 SURGERY TIME: 100 PREOPERATIVE DIAGNOSIS: 1. NAUSEA/VOMITING. 2. SCREENING. POSTOPERATIVE DIAGNOSIS: 1. 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 2. THREE FUNDAL RESOLVING ULCERS WITH PINPOINT RESIDUAL ULCERS. 3. FUNDAL GASTRITIS. PROCEDURE: 1. EGD with cold biopsy X 1. 2. Colonoscopy complete to cecum with hot polypectomy X 1. SURGEON: Jonah Elizabeth M.D. ANESTHESIA: MAC. COMPLICATIONS: None. CONDITION: Stable. INDICATION: The patient has had nausea/vomiting. She is 72 years old. She requires an upper exam. She has not had a lower exam. This also can cause nausea, but it is principally screening. OPERATIVE PROCEDURE: She was taken to endoscopy. Left lateral decubitus position. Scope introduced. Esophagogastric junction normal. Esophagus normal down to esophagogastric junction. There was severe esophagitis. It certainly had been improving on medicine in the hospital, but it was grade III/IV. There was no hiatal hernia. In the fundus, there was gastritis and those 3 areas had been ulcerated, but were down to a small pinpoint ulcer as there had been healing in the fundus. Finishing Frame Runner biopsy of one of these. Body and antrum satisfactory. Duodenal bulb satisfactory. 2nd portion satisfactory. Pylorus satisfactory. Scope withdrawn, looped upon itself. No additional lesions noted. Scope withdrawn. Patient tolerated the procedure satisfactory. DISPOSITION: Mackenzie. She is improving on major antacid medications. She may benefit from adding Carafate. Lower Scope: ? PLEASE DICTATE THIS PORTION
== END 2021-09-20 14:15 | disposition home or self-care (01) | DRG 690 ==
LOC: MED SURG 18:28 → OBSVTOIN 09-16 08:20
PROVIDERS: ADMIT Family Medicine; ATTEND Family Medicine
PROC: 0DB48ZX Excision of Esophagogastric Junction, Via Natural or Artificial Opening Endoscopic, Diagnostic (ICD-10-PCS; principal; 2021-09-19)
PROC: 0DBH8ZX Excision of Cecum, Via Natural or Artificial Opening Endoscopic, Diagnostic (ICD-10-PCS; 2021-09-19)
DX: N12 Tubulo-interstitial nephritis, not specified as acute or chronic (principal); R50.9 Fever, unspecified; R11.2 Nausea with vomiting, unspecified; R74.8 Abnormal levels of other serum enzymes; Z12.11 Encounter for screening for malignant neoplasm of colon; I10 Essential (primary) hypertension; I25.10 Atherosclerotic heart disease of native coronary artery without angina pectoris; R06.2 Wheezing; K27.9 Peptic ulcer, site unspecified, unspecified as acute or chronic, without hemorrhage or perforation; R79.89 Other specified abnormal findings of blood chemistry; K21.9 Gastro-esophageal reflux disease without esophagitis; K29.70 Gastritis, unspecified, without bleeding; Z79.899 Other long term (current) drug therapy; Z20.828 Contact with and (suspected) exposure to other viral communicable diseases
CPT/HCPCS: 0241U; 36000; 36415; 43239; 45384; 71046; 74176; 76705; 76770; 78226; 80053; 81015; 82150; 82248; 82947; 83036; 83605; 83690; 83880; 85025; 87040; 87086; 93306; 94640; 94760; 96360; 96361; 99284; A9537; G0378; 99100; J0456; J0696; J1170; J1940; J2270; J2405; J2550; J2704; J2805; J7609; A9270-GY